=== PATIENT | male | born 1945 | race Hispanic/Latino ===

== ENCOUNTER 2017-12-10 10:28 | Emergency (ER) | payer MEDICARE ==
[2017-12-10 11:06] LABS: Basophils # (Auto) 0.1 K/mm3 (0.0-0.1); Basophils % (Auto) 0.6 % (0.0-1.8); Eosinophils # (Auto) 0.1 K/mm3 (0.0-0.4); Eosinophils % (Auto) 1.1 % (0.0-4.3); Hematocrit 50.9 % (35.5-45.6); Hemoglobin 17.3 gm/dl (11.8-15.2); Lymphocytes # (Auto) 2.5 K/mm3 (1.2-5.4); Lymphocytes % (Auto) 25.9 % (13.4-35.0); Mean Corpuscular HGB Conc 34 % (32-34); Mean Corpuscular Hemoglobin 31 pg (28-32); Mean Corpuscular Volume 92 fl (84-94); Monocytes # (Auto) 0.9 K/mm3 (0.0-0.8); Monocytes % (Auto) 8.9 % (0.0-7.3); Platelet Count 315 K/mm3 (140-440); Red Blood Count 5.55 M/mm3 (3.65-5.03); Red Cell Distribution Width 14.5 % (13.2-15.2)
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
[2017-12-10 11:21] LABS: BUN/Creatinine Ratio 10; Blood Urea Nitrogen 9 mg/dL (9-20); Calcium 9.6 mg/dL (8.4-10.2); Hemolysis Index 19
[2017-12-10 11:30] VITALS: BP 121/82
[2017-12-12] MEDS ORDERED: ATIVAN PO ONE (13:37)
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
== END 2017-12-10 13:22 ==
LOC: ED 10:28
DX: F11.20 Opioid dependence, uncomplicated (principal); F32.9 Major depressive disorder, single episode, unspecified; I10 Essential (primary) hypertension; F17.200 Nicotine dependence, unspecified, uncomplicated; Z90.49 Acquired absence of other specified parts of digestive tract; Z90.89 Acquired absence of other organs
CPT/HCPCS: 36415; 80048; 85025; 99284; G0480; 80320

== ENCOUNTER 2017-12-12 09:46 | Emergency (ER) | payer MEDICARE ==
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
[2017-12-12 11:53] LABS: Basophils # (Auto) 0.2 K/mm3 (0.0-0.1); Basophils % (Auto) 1.1 % (0.0-1.8); Eosinophils # (Auto) 0.1 K/mm3 (0.0-0.4); Eosinophils % (Auto) 0.4 % (0.0-4.3); Hematocrit 57.1 % (35.5-45.6); Hemoglobin 19.2 gm/dl (11.8-15.2); Lymphocytes # (Auto) 3.7 K/mm3 (1.2-5.4); Lymphocytes % (Auto) 23.1 % (13.4-35.0); Mean Corpuscular HGB Conc 34 % (32-34); Mean Corpuscular Hemoglobin 31 pg (28-32); Mean Corpuscular Volume 92 fl (84-94); Monocytes # (Auto) 0.9 K/mm3 (0.0-0.8); Monocytes % (Auto) 5.9 % (0.0-7.3); Red Blood Count 6.18 M/mm3 (3.65-5.03); Red Cell Distribution Width 14.9 % (13.2-15.2)
[2017-12-12 12:12] LABS: Bacteria,Urine 1+ /HPF (Negative); Bilirubin,Urine NEG (Negative); Blood,Urine MOD (Negative); Color,Urine Yellow (Yellow); Hyaline Casts,Urine 9 /LPF; Mucus,Urine 2+ /HPF; Urobilinogen,Urine < 2.0 mg/dL (<2.0)
[2017-12-12 12:14] LABS: Platelet Count 271 K/mm3 (140-440)
[2017-12-12 12:16] LABS: Amphetamine Screen,Urine PRESUMPTIVE NEGATIVE; Benzodiazepines Screen,Urine PRESUMPTIVE NEGATIVE; Cannabinoid Screen,Urine PRESUMPTIVE NEGATIVE; Cocaine Screen,Urine PRESUMPTIVE NEGATIVE; Methadone Screen,Urine PRESUMPTIVE NEGATIVE; Opiate Screen,Urine PRESUMPTIVE NEGATIVE
[2017-12-12 12:21] LABS: BUN/Creatinine Ratio 13; Blood Urea Nitrogen 13 mg/dL (9-20); Calcium 9.2 mg/dL (8.4-10.2); Hemolysis Index 90
[2017-12-12] MEDS ORDERED: ATIVAN PO ONE (13:40)
[2017-12-12 15:09] VITALS: BP 145/82
== END 2017-12-12 15:12 | disposition home or self-care (01) ==
LOC: ED 09:46
DX: F11.23 Opioid dependence with withdrawal (principal); F41.9 Anxiety disorder, unspecified; I10 Essential (primary) hypertension; Z90.49 Acquired absence of other specified parts of digestive tract
CPT/HCPCS: 36415; 80048; 80307; 81001; 85025; 99284; G0480; 80320

== ENCOUNTER 2018-07-23 14:41 | Inpatient (IN) | payer MEDICARE ==
[2018-07-23 16:25] LABS: BUN/Creatinine Ratio 16; Blood Urea Nitrogen 16 mg/dL (9-20); Calcium 8.2 mg/dL (8.4-10.2); Hemolysis Index 251
[2018-07-23] MEDS ORDERED: D50W (25GM) Vial IV ONE (16:40)
[2018-07-23] MEDS ORDERED: D50W (25GM) Syringe IV PRN (16:40)
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
[2018-07-23] MEDS ORDERED: D5/0.45NS 1,000 ML IV SCH (17:00)
[2018-07-23] MEDS ORDERED: ROCEPHIN/NS 1 GM/50 ML 1 GM/50 ML BAG IV ONE (17:19)
[2018-07-23 17:28] LABS: Mean Corpuscular HGB Conc 37 % (32-34); Mean Corpuscular Volume 93 fl (84-94); Red Blood Count 5.75 M/mm3 (3.65-5.03)
[2018-07-23 17:43] LABS: INR 0.87 (0.87-1.13)
[2018-07-23 17:45] LABS: Partial Thromboplastin Time 28.3 Sec. (24.2-36.6)
--- NOTE | 2018-07-23 17:46 | XRay Report ---
PROCEDURE: XR CHEST 1V AP HISTORY: ams hypoglycemia FINDINGS: Frontal view of the chest was acquired. The heart is normal in size. The lungs appear clear . The pleura and mediastinum are within normal limits. IMPRESSION: No active disease in the chest This document is electronically signed by Fidel Yost MD., July 23 2018 05:44:28 PM ET
[2018-07-23 17:52] LABS: Bilirubin,Urine NEG (Negative); Blood,Urine MOD (Negative); Color,Urine Yellow (Yellow); Mucus,Urine FEW /HPF; Protein,Urine <15 mg/dL mg/dL (Negative); Urobilinogen,Urine < 2.0 mg/dL (<2.0)
[2018-07-23 17:55] LABS: Hematocrit 53.6 % (35.5-45.6); Hemoglobin 19.6 gm/dl (11.8-15.2)
[2018-07-23 17:56] LABS: Platelet Count 395 K/mm3 (140-440)
[2018-07-23 17:56] LABS: Amphetamine Screen,Urine PRESUMPTIVE NEGATIVE; Benzodiazepines Screen,Urine PRESUMPTIVE NEGATIVE; Cannabinoid Screen,Urine PRESUMPTIVE NEGATIVE; Cocaine Screen,Urine PRESUMPTIVE NEGATIVE; Methadone Screen,Urine PRESUMPTIVE NEGATIVE; Opiate Screen,Urine PRESUMPTIVE NEGATIVE
[2018-07-23] MEDS ORDERED: NACL 0.9% 1000 ML 1,000 ML IV ONE (18:02)
[2018-07-23] MEDS ORDERED: NACL 0.9% 1000 ML 2,000 ML IV ONE (18:02)
[2018-07-23 18:19] LABS: Band Neutrophils # (Manual) 0.2 K/mm3; Eosinophils % (Manual) 0 % (0.0-4.3); Total Cells Counted 100
[2018-07-23] MEDS ORDERED: HALDOL ONE ×2 (18:21→18:31)
[2018-07-23 18:22] LABS: Ovalocytes Few; Platelet Clumps Few; Platelet Estimate Consistent w Auto; Poikilocytosis Few
[2018-07-23] MEDS ORDERED: HALDOL IM ONE (18:25)
[2018-07-23] MEDS ORDERED: GEODON IM ONE (18:48)
--- NOTE | 2018-07-23 20:17 | Cat Scan Report ---
CT HEAD/BRAIN WO CON CLINICAL INDICATION: Male, 73 years of age. ams COMPARISON: None TECHNIQUE: Contiguous axial images were obtained from the vertex through the skull base.This CT exam was perform ed using one or more of the following dose reduction techniques: automated exposure control, adjustme nt of the mA and/or kV according to patient size, or use of iterative reconstruction technique. FINDINGS: No acute intracranial hemorrhage, midline shift, or pathological extra-axial fluid collection. There is age-related volume loss with compensatory dilatation of the ventricular system and prominence of the overlying sulci. Patchy areas of decreased attenuation within the subcortical and periventricula r white matter compatible with the sequelae of chronic small vessel ischemic disease. Prominence of t he extra-axial CSF spaces which may relate to underlying volume loss. Benign subdural hygromas are no t excluded. 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 Ocular globes ar e grossly unremarkable. Calvarium is grossly intact. Visualized paranasal sinuses and mastoid air cells are grossly clear. IMPRESSION: No grossly acute intracranial abnormality. Mild to moderate volume loss and chronic small vessel isch emic disease. This document is electronically signed by Sully Bowman DO., July 23 2018 08:15:39 PM ET
--- NOTE | 2018-07-23 20:20 | Cat Scan Report ---
CT CERVICAL SPINE WO CON CLINICAL INDICATION: Male, 73 years of age. ams COMPARISON: None. TECHNIQUE: Contiguous axial images were obtained of the cervical spine. This CT exam was performed u sing one or more of the following dose reduction techniques: automated exposure control, adjustment o f the mA and/or kV according to patient size, or use of iterative reconstruction technique. Additiona l sagittal and coronal reformatted images were obtained. Findings: There is straightening of the cervical spine which may reflect patient positioning or under lying muscle spasm. Cervical vertebral body heights are maintained. No acute fracture or traumatic subluxation. The odontoid process, articular pillars, and occipital condyles are intact. Mild to moderate loss of disc height at C4-C5 through C7-T1 levels. Mild canal stenosis and mild-to-m oderate foraminal narrowing at several levels due to broad-based disc bulge, endplate osteophyte and uncovertebral hypertrophy. Rotation of C1 on C2 which may be positional. No pneumothorax of the visua lized lung apices. Prominent calcification carotid bifurcations, greater on the right. IMPRESSION: 1. No acute fracture or traumatic subluxation. There is straightening of the cervical spine which may reflect patient positioning or underlying muscle spasm. 2. Rotation of C1 and C2 which may be positional. Alanto axial Rotatory subluxation could have a nzaia lar appearance by imaging. Clinical correlation is needed for limited range of motion. 3. Mild to moderate degenerative changes. This document is electronically signed by Sully Bowman DO., July 23 2018 08:18:34 PM [place]
--- NOTE | 2018-07-23 20:35 | Cat Scan Report ---
PROCEDURE: CT ABDOMEN PELVIS W CON TECHNIQUE: Computerized axial tomography of the abdomen and pelvis was performed after the IV inject ion of iodinated nonionic contrast. CT DOSE LENGTH PRODUCT: 1869.3 mGycm HISTORY: ams, llq abd pain COMPARISONS: March 03, 2018 . FINDINGS: Liver, spleen, pancreas and adrenal glands are within normal limits. A 3.9 cm simple cyst is noted ar ising from the midpole left kidney. Otherwise Bilateral kidneys demonstrate normal enhancement withou t hydronephrosis. Urinary bladder is normally distended with normal outlines. Aorta is of normal obinna nigel. There is no free fluid or free air. Status post cholecystectomy. Small bowel loops are within no rmal limits. Appendix is not distinctly visualized. There are no inflammatory changes right lower martha drant. Mild prostatomegaly identified. A few small uncomplicated fat-containing midline ventral herni as are noted. Vertebral height is normal. Vacuum phenomenon is noted involving all the lumbar disc le vels consistent with degenerative disc disease. IMPRESSION: No acute intra-abdominal or pelvic pathology. This document is electronically signed by Ge Dupont MD., July 23 2018 08:33:14 PM ET
--- NOTE | 2018-07-23 22:56 | History and Physical Report ---
History of Present Illness Date of examination: 07/23/18 History of present illness: 73-year-old woman with a history of hypertension, migraine was brought to the emergency room for altered mental status. The patient is able to give his history however he does not remember how he got here. He was found to be intoxicated, he was agitated and given Alpa Mustafa to get CT Review of systems Constitutional: no weight loss, chills, fever Ears, eyes, nose, mouth and throat: no nasal congestion, no nasal discharge, no sinus pressure, no vision change, no red eye. Neck: No neck pain or rigidity. Cardiovascular: no palpitations,chest pain Respiratory: no cough, shortness of breath Gastrointestinal: no abdominal pain Genitourinary : no frequency , no hematuria Musculoskeletal: no joint swelling or muscle ache Integumentary: no rash, no pruritis Neurological: no parathesias, no focal weakness Endocrine: no cold or heat intolerance, no polyuria or polydipsia Hematologic/Lymphatic: no easy bruising, no easy bleeding, no gland swelling Allergic/Immunologic: no urticaria, no angioedema. PAST MEDICAL HISTORY: hypertension, migraine PAST SURGICAL HISTORY: Abdominal SOCIAL HISTORY: + alcohol, denies tobacco, drugs FAMILY HISTORY: Hypertension Medications and Allergies Allergies Allergy/AdvReac Type Severity Reaction Status Date / Time No Known Allergies Allergy Verified 03/03/18 03:08 Home Medications Medication Instructions Recorded Confirmed Last Taken Type Carvedilol [Coreg] 25 mg PO BID #60 tablet 07/27/18 Unknown Rx Citalopram Hydrobromide [celeXA] 20 mg PO DAILY #30 tablet 07/27/18 Unknown Rx Folic Acid [Folvite] 1 mg PO QDAY #30 tablet 07/27/18 Unknown Rx Multivitamin [Multiple Vitamins] 1 each PO DAILY #30 tablet 07/27/18 Unknown Rx Pregabalin [Lyrica] 50 mg PO TID 07/27/18 07/27/18 Unknown History Thiamine [Vitamin B-1] 100 mg PO QDAY #30 tablet 07/27/18 Unknown Rx Zolpidem [Ambien] 5 mg PO QHS 07/27/18 07/27/18 Unknown History amLODIPine [Norvasc] 5 mg PO DAILY #30 tablet 07/27/18 Unknown Rx oxyCODONE /ACETAMINOPHEN [Percocet 1 tab PO Q6HR PRN #10 tablet 07/27/18 Unknown Rx 5/325 mg] Active Meds: Active Medications Dextrose (D50w (25gm) Syringe) 50 ml IV PRN PRN PRN Reason: Hypoglycemia Dextrose/Sodium Chloride (D5/0.45ns) 1,000 mls @ 0 mls/hr IV DIRECT LEELA Last Admin: 07/23/18 17:05 Dose: 250 mls/hr Documented by: Exam - Physical Exam Narrative exam: Gen. appearance: Patient lying in bed, no apparent distress HEENT: Normocephalic, atraumatic, pupils equally round and reactive to light, extraocular movement intact, and no sclericterus,. No JVD or thyromegaly or nodu le,neck supple, no carotid bruit ,mucous membranes moist, no exudate or erythema Heart: S1, S2, regular rate and rhythm Lungs: Clear bilaterally, breathing comfortable Abdomen: Positive bowel sounds, non-tender, nondistended, no organomegaly Extremity:no edema cyanosis, clubbing Skin: no rash, dry, warm Neuro: Oriented 3, cranial nerves II-12 intact, speech is fluent, motor and sensory intact - Constitutional Vitals: Temp Pulse Resp BP Pulse Ox 96.4 F L 80 18 139/89 97 07/23/18 19:03 07/23/18 20:15 07/23/18 20:59 07/23/18 20:15 07/23/18 20:15 Results - Labs CBC & Chem 7: 07/24/18 08:02 07/26/18 05:50 Labs: Abnormal lab results 07/23/18 07/23/18 07/23/18 Range/Units 15:52 15:52 15:52 WBC (4.5-11.0) K/mm3 RBC (3.65-5.03) M/mm3 Hgb (11.8-15.2) gm/dl Hct (35.5-45.6) % MCH (28-32) pg MCHC (32-34) % RDW (13.2-15.2) % Seg Neuts % (Manual) (40.0-70.0) % Basophils % (Manual) (0.0-1.8) % Seg Neutrophils # Man (1.8-7.7) K/mm3 Basophils # (Manual) (0.0-0.1) K/mm3 Chloride 97.4 L (98-107) mmol/L Carbon Dioxide 19 L (22-30) mmol/L Glucose 54 L (75-100) mg/dL POC Glucose (70-105) Lactic Acid (0.7-2.0) mmol/L Calcium 8.2 L (8.4-10.2) mg/dL Salicylates < 0.3 L (2.8-20.0) mg/dL Acetaminophen < 5.0 L (10.0-30.0) ug/mL Plasma/Serum Alcohol (0-0.07) % 07/23/18 07/23/18 07/23/18 Range/Units 15:52 16:46 17:11 WBC 11.6 H (4.5-11.0) K/mm3 RBC 5.75 H (3.65-5.03) M/mm3 Hgb 19.6 H (11.8-15.2) gm/dl Hct 53.6 H (35.5-45.6) % MCH 34 H (28-32) pg MCHC 37 H (32-34) % RDW 16.0 H (13.2-15.2) % Seg Neuts % (Manual) 77.0 H (40.0-70.0) % Basophils % (Manual) 2.0 H (0.0-1.8) % Seg Neutrophils # Man 8.9 H (1.8-7.7) K/mm3 Basophils # (Manual) 0.2 H (0.0-0.1) K/mm3 Chloride (98-107) mmol/L Carbon Dioxide (22-30) mmol/L Glucose (75-100) mg/dL POC Glucose (70-105) Lactic Acid 5.80 H* (0.7-2.0) mmol/L Calcium (8.4-10.2) mg/dL Salicylates (2.8-20.0) mg/dL Acetaminophen (10.0-30.0) ug/mL Plasma/Serum Alcohol 0.46 H (0-0.07) % 07/23/18 07/23/18 07/23/18 Range/Units 17:12 18:25 19:03 WBC (4.5-11.0) K/mm3 RBC (3.65-5.03) M/mm3 Hgb (11.8-15.2) gm/dl Hct (35.5-45.6) % MCH (28-32) pg MCHC (32-34) % RDW (13.2-15.2) % Seg Neuts % (Manual) (40.0-70.0) % Basophils % (Manual) (0.0-1.8) % Seg Neutrophils # Man (1.8-7.7) K/mm3 Basophils # (Manual) (0.0-0.1) K/mm3 Chloride (98-107) mmol/L Carbon Dioxide (22-30) mmol/L Glucose (75-100) mg/dL POC Glucose < 40 L 128 H (70-105) Lactic Acid 6.20 H* (0.7-2.0) mmol/L Calcium (8.4-10.2) mg/dL Salicylates (2.8-20.0) mg/dL Acetaminophen (10.0-30.0) ug/mL Plasma/Serum Alcohol (0-0.07) % 07/23/18 07/23/18 07/23/18 Range/Units 20:24 20:42 20:59 WBC (4.5-11.0) K/mm3 RBC (3.65-5.03) M/mm3 Hgb (11.8-15.2) gm/dl Hct (35.5-45.6) % MCH (28-32) pg MCHC (32-34) % RDW (13.2-15.2) % Seg Neuts % (Manual) (40.0-70.0) % Basophils % (Manual) (0.0-1.8) % Seg Neutrophils # Man (1.8-7.7) K/mm3 Basophils # (Manual) (0.0-0.1) K/mm3 Chloride (98-107) mmol/L Carbon Dioxide (22-30) mmol/L Glucose (75-100) mg/dL POC Glucose 157 H (70-105) Lactic Acid 7.80 H* 7.90 H* (0.7-2.0) mmol/L Calcium (8.4-10.2) mg/dL Salicylates (2.8-20.0) mg/dL Acetaminophen (10.0-30.0) ug/mL Plasma/Serum Alcohol (0-0.07) % 07/23/18 Range/Units 21:59 WBC (4.5-11.0) K/mm3 RBC (3.65-5.03) M/mm3 Hgb (11.8-15.2) gm/dl Hct (35.5-45.6) % MCH (28-32) pg MCHC (32-34) % RDW (13.2-15.2) % Seg Neuts % (Manual) (40.0-70.0) % Basophils % (Manual) (0.0-1.8) % Seg Neutrophils # Man (1.8-7.7) K/mm3 Basophils # (Manual) (0.0-0.1) K/mm3 Chloride (98-107) mmol/L Carbon Dioxide (22-30) mmol/L Glucose (75-100) mg/dL POC Glucose (70-105) Lactic Acid 7.30 H* (0.7-2.0) mmol/L Calcium (8.4-10.2) mg/dL Salicylates (2.8-20.0) mg/dL Acetaminophen (10.0-30.0) ug/mL Plasma/Serum Alcohol (0-0.07) % - Imaging and Cardiology CT scan - abdomen: report reviewed CT Scan - head: report reviewed CT scan - pelvis: report reviewed Assessment and Plan Assessment Alcohol intoxication Elevated lactic acid Plan Start IV fluids, CIWA protocol with IV Ativan Give 1 dose of Levaquin, monitor, follow blood cultures No signs of infection DVT prophylaxis
[2018-07-23] MEDS ORDERED: NACL 0.9% 1000 ML 1,000 ML IV SCH (23:45)
[2018-07-23] MEDS ORDERED: ZOFRAN IV PRN (23:46)
[2018-07-23] MEDS ORDERED: SODIUM CHLORIDE FLUSH SYRINGE 10 ML IV PRN (23:46)
[2018-07-24] MEDS ORDERED: XANAX PO PRN (02:15)
[2018-07-24] MEDS: ATIVAN IV PRN ×4 (02:44→18:51)
[2018-07-24] MEDS: TYLENOL PO PRN ×2 (02:45→19:56)
[2018-07-24] MEDS ORDERED: LEVAQUIN 750MG/150ML 750 MG/150 ML BAG IV ONE (02:46)
[2018-07-24 08:37] LABS: Basophils # (Auto) 0.1 K/mm3 (0.0-0.1); Basophils % (Auto) 1.2 % (0.0-1.8); Eosinophils # (Auto) 0.1 K/mm3 (0.0-0.4); Eosinophils % (Auto) 1.3 % (0.0-4.3); Hematocrit 43.5 % (35.5-45.6); Lymphocytes # (Auto) 1.8 K/mm3 (1.2-5.4); Mean Corpuscular HGB Conc 35 % (32-34); Mean Corpuscular Volume 91 fl (84-94); Monocytes # (Auto) 0.7 K/mm3 (0.0-0.8); Monocytes % (Auto) 9.5 % (0.0-7.3); Platelet Count 270 K/mm3 (140-440); Red Blood Count 4.77 M/mm3 (3.65-5.03); Red Cell Distribution Width 15.9 % (13.2-15.2)
[2018-07-24 09:08] LABS: BUN/Creatinine Ratio 19; Blood Urea Nitrogen 13 mg/dL (9-20); Calcium 7.3 mg/dL (8.4-10.2); Hemolysis Index 104
[2018-07-24] MEDS ORDERED: LOVENOX SUB-Q SCH (10:00)
[2018-07-24] MEDS: SODIUM CHLORIDE FLUSH SYRINGE 10 ML IV SCH ×2 (10:42→22:22)
[2018-07-24] MEDS: LOVENOX SUB-Q SCH (10:42)
[2018-07-24] MEDS ORDERED: K-DUR PO ONE (12:00)
[2018-07-24] MEDS ORDERED: NACL 0.9% 1000 ML 1,000 ML IV ONE (12:00)
[2018-07-24] MEDS: PROTONIX PO SCH (13:13)
[2018-07-24] MEDS: NS/KCL 20MEQ 20 MEQ/1,000 ML BAG IV SCH (13:13)
--- NOTE | 2018-07-24 15:57 | Progress Note ---
Assessment and Plan Assessment and plan: Acute alcohol intoxication -Stable -Continues CIWA protocol Lactic acidosis -Likely secondary to the alcohol intoxication -Level improving on IV fluid, will monitor Acute toxic/metabolic encephalopathy -Probably due to the alcohol intoxication versus hypoglycemia -Improved -Head CT scan negative for acute findings Mild hypokalemia -on repletion, we'll monitor level Hypoglycemia -On hypoglycemic protocol Disposition: For discharge when medically stable History Interval history: The patient has no new complaints. He is more responsive today. Hospitalist Physical - Constitutional Vitals: Temp Pulse Resp BP Pulse Ox 98.2 F 80 18 116/55 93 07/24/18 08:10 07/24/18 08:10 07/24/18 08:10 07/24/18 08:10 07/24/18 08:10 General appearance: Present: no acute distress - EENT Eyes: Present: PERRL, EOM intact ENT: hearing intact, clear oral mucosa - Neck Neck: Present: supple - Respiratory Respiratory effort: normal Respiratory: bilateral: CTA - Cardiovascular Rhythm: regular Heart Sounds: Present: S1 & S2 - Extremities Extremities: No edema - Abdominal General gastrointestinal: soft, tender (epigastric), normal bowel sounds - Integumentary Integumentary: Present: clear, warm, dry - Neurologic Neurologic: CNII-XII intact Results - Labs CBC & Chem 7: 07/24/18 08:02 07/24/18 08:02 Labs: Laboratory Last Values WBC 7.1 K/mm3 (4.5-11.0) 07/24/18 08:02 RBC 4.77 M/mm3 (3.65-5.03) 07/24/18 08:02 Hgb 15.0 gm/dl (11.8-15.2) D 07/24/18 08:02 Hct 43.5 % (35.5-45.6) D 07/24/18 08:02 MCV 91 fl (84-94) 07/24/18 08:02 MCH 32 pg (28-32) 07/24/18 08:02 MCHC 35 % (32-34) H 07/24/18 08:02 RDW 15.9 % (13.2-15.2) H 07/24/18 08:02 Plt Count 270 K/mm3 (140-440) 07/24/18 08:02 Lymph % (Auto) 25.0 % (13.4-35.0) 07/24/18 08:02 [place] % (Auto) 9.5 % (0.0-7.3) H 07/24/18 08:02 Eos % (Auto) 1.3 % (0.0-4.3) 07/24/18 08:02 Baso % (Auto) 1.2 % (0.0-1.8) 07/24/18 08:02 Lymph # 1.8 K/mm3 (1.2-5.4) 07/24/18 08:02 Jerome # 0.7 K/mm3 (0.0-0.8) 07/24/18 08:02 Eos # 0.1 K/mm3 (0.0-0.4) 07/24/18 08:02 Baso # 0.1 K/mm3 (0.0-0.1) 07/24/18 08:02 Add Manual Diff Complete 07/23/18 16:46 Total Counted 100 07/23/18 16:46 Seg Neutrophils % 63.0 % (40.0-70.0) 07/24/18 08:02 Seg Neuts % (Manual) 77.0 % (40.0-70.0) H 07/23/18 16:46 Band Neutrophils % 2.0 % 07/23/18 16:46 Lymphocytes % (Manual) 16.0 % (13.4-35.0) 07/23/18 16:46 Reactive Lymphs % (Man) 0 % 07/23/18 16:46 Monocytes % (Manual) 3.0 % (0.0-7.3) 07/23/18 16:46 Eosinophils % (Manual) 0 % (0.0-4.3) 07/23/18 16:46 Basophils % (Manual) 2.0 % (0.0-1.8) H 07/23/18 16:46 Metamyelocytes % 0 % 07/23/18 16:46 Myelocytes % 0 % 07/23/18 16:46 Promyelocytes % 0 % 07/23/18 16:46 Blast Cells % 0 % 07/23/18 16:46 Nucleated RBC % Not Reportable 07/23/18 16:46 Seg Neutrophils # 4.5 K/mm3 (1.8-7.7) 07/24/18 08:02 Seg Neutrophils # Man 8.9 K/mm3 (1.8-7.7) H 07/23/18 16:46 Band Neutrophils # 0.2 K/mm3 07/23/18 16:46 Lymphocytes # (Manual) 1.9 K/mm3 (1.2-5.4) 07/23/18 16:46 Abs React Lymphs (Man) 0.0 K/mm3 07/23/18 16:46 Monocytes # (Manual) 0.3 K/mm3 (0.0-0.8) 07/23/18 16:46 Eosinophils # (Manual) 0.0 K/mm3 (0.0-0.4) 07/23/18 16:46 Basophils # (Manual) 0.2 K/mm3 (0.0-0.1) H 07/23/18 16:46 Metamyelocytes # 0.0 K/mm3 07/23/18 16:46 Myelocytes # 0.0 K/mm3 07/23/18 16:46 Promyelocytes # 0.0 K/mm3 07/23/18 16:46 Blast Cells # 0.0 K/mm3 07/23/18 16:46 WBC Morphology Not Reportable 07/23/18 16:46 Hypersegmented Neuts Not Reportable 07/23/18 16:46 Hyposegmented Neuts Not Reportable 07/23/18 16:46 Hypogranular Neuts Not Reportable 07/23/18 16:46 Smudge Cells Not Reportable 07/23/18 16:46 Toxic Granulation Not Reportable 07/23/18 16:46 Toxic Vacuolation Not Reportable 07/23/18 16:46 Dohle Bodies Not Reportable 07/23/18 16:46 Pelger-Huet Anomaly Not Reportable 07/23/18 16:46 Flavia Rods Not Reportable 07/23/18 16:46 Platelet Estimate Consistent w auto 07/23/18 16:46 Clumped Platelets Few 07/23/18 16:46 Plt Clumps, EDTA Not Reportable 07/23/18 16:46 Large Platelets Not Reportable 07/23/18 16:46 Giant Platelets Not Reportable 07/23/18 16:46 Platelet Satelliting Not Reportable 07/23/18 16:46 Plt Morphology Comment Not Reportable 07/23/18 16:46 RBC Morphology Not Reportable 07/23/18 16:46 Dimorphic RBCs Not Reportable 07/23/18 16:46 Polychromasia Not Reportable 07/23/18 16:46 Hypochromasia Not Reportable 07/23/18 16:46 Poikilocytosis Few 07/23/18 16:46 Anisocytosis Not Reportable 07/23/18 16:46 Microcytosis Not Reportable 07/23/18 16:46 Macrocytosis Not Reportable 07/23/18 16:46 Spherocytes Not Reportable 07/23/18 16:46 Pappenheimer Bodies Not Reportable 07/23/18 16:46 Sickle Cells Not Reportable 07/23/18 16:46 Target Cells Not Reportable 07/23/18 16:46 Tear Drop Cells Not Reportable 07/23/18 16:46 Ovalocytes Few 07/23/18 16:46 Helmet Cells Not Reportable 07/23/18 16:46 [place] Bodies Not Reportable 07/23/18 16:46 [place] Rings Not Reportable 07/23/18 16:46 [place] Cells Not Reportable 07/23/18 16:46 Bite Cells Not Reportable 07/23/18 16:46 Crenated Cell Not Reportable 07/23/18 16:46 Elliptocytes Not Reportable 07/23/18 16:46 Acanthocytes (Spur) Not Reportable 07/23/18 16:46 Rouleaux Not Reportable 07/23/18 16:46 Hemoglobin C Crystals Not Reportable 07/23/18 16:46 Schistocytes Not Reportable 07/23/18 16:46 Malaria parasites Not Reportable 07/23/18 16:46 Min Bodies Not Reportable 07/23/18 16:46 Hem Pathologist Commnt No 07/23/18 16:46 PT 12.4 Sec. (12.2-14.9) 07/23/18 17:11 INR 0.87 (0.87-1.13) 07/23/18 17:11 APTT 28.3 Sec. (24.2-36.6) 07/23/18 17:11 Sodium 140 mmol/L (137-145) 07/24/18 08:02 Potassium 3.5 mmol/L (3.6-5.0) L 07/24/18 08:02 Chloride 99.5 mmol/L (98-107) 07/24/18 08:02 Carbon Dioxide 20 mmol/L (22-30) L 07/24/18 08:02 Anion Gap 24 mmol/L 07/24/18 08:02 BUN 13 mg/dL (9-20) 07/24/18 08:02 Creatinine 0.7 mg/dL (0.8-1.5) L 07/24/18 08:02 Estimated GFR > 60 ml/min 07/24/18 08:02 BUN/Creatinine Ratio 19 % 07/24/18 08:02 Glucose 53 mg/dL (75-100) L 07/24/18 08:02 POC Glucose 137 (70-105) H 07/24/18 00:32 Lactic Acid 4.90 mmol/L (0.7-2.0) H* 07/24/18 08:02 Calcium 7.3 mg/dL (8.4-10.2) L 07/24/18 08:02 Magnesium 2.30 mg/dL (1.7-2.3) 07/23/18 17:11 Total Creatine Kinase 81 units/L (55-170) 07/23/18 17:11 TSH 0.731 mlU/mL (0.270-4.200) 07/23/18 18:25 Urine Color Yellow (Yellow) 07/23/18 17:15 Urine Turbidity Slightly-cloudy (Clear) 07/23/18 17:15 Urine pH 5.0 (5.0-7.0) 07/23/18 17:15 Ur Specific [place] 1.011 (1.003-1.030) 07/23/18 17:15 Urine Protein <15 mg/dl mg/dL (Negative) 07/23/18 17:15 Urine Glucose (UA) Neg mg/dL (Negative) 07/23/18 17:15 Urine Ketones Tr mg/dL (Negative) 07/23/18 17:15 Urine Blood Mod (Negative) 07/23/18 17:15 Urine Nitrite Neg (Negative) 07/23/18 17:15 Urine Bilirubin Neg (Negative) 07/23/18 17:15 Urine Urobilinogen < 2.0 mg/dL (<2.0) 07/23/18 17:15 Ur Leukocyte Esterase Neg (Negative) 07/23/18 17:15 Urine WBC (Auto) 2.0 /HPF (0.0-6.0) 07/23/18 17:15 Urine RBC (Auto) 1.0 /HPF (0.0-6.0) 07/23/18 17:15 U Epithel Cells (Auto) < 1.0 /HPF (0-13.0) 07/23/18 17:15 Urine Mucus Few /HPF 07/23/18 17:15 Salicylates < 0.3 mg/dL (2.8-20.0) L 07/23/18 15:52 Urine Opiates Screen Presumptive negative 07/23/18 17:15 Urine Methadone Screen Presumptive negative 07/23/18 17:15 Acetaminophen < 5.0 ug/mL (10.0-30.0) L 07/23/18 15:52 Ur Barbiturates Screen Presumptive negative 07/23/18 17:15 Ur Phencyclidine Scrn Presumptive negative 07/23/18 17:15 Ur Amphetamines Screen Presumptive negative 07/23/18 17:15 U Benzodiazepines Scrn Presumptive negative 07/23/18 17:15 Urine Cocaine Screen Presumptive negative 07/23/18 17:15 U Marijuana (THC) Screen Presumptive negative 07/23/18 17:15 Drugs of Abuse Note Disclamer 07/23/18 17:15 Plasma/Serum Alcohol 0.46 % (0-0.07) H 07/23/18 15:52 Active Medications - Current Medications Current Medications: Generic Name Dose Route Start Last Admin Trade Name Freq PRN Reason Stop Dose Admin Acetaminophen 650 mg 07/23/18 23:46 07/24/18 02:45 Tylenol PO 650 mg Q4H PRN Administration Pain MILD(1-3)/Fever >100.5/SAHU Dextrose 50 ml 07/23/18 16:40 D50w (25gm) Syringe IV PRN PRN Hypoglycemia Enoxaparin Sodium 40 mg 07/24/18 10:00 07/24/18 10:42 Lovenox SUB-Q 40 mg QDAY@1000 LEELA Administration Potassium Chloride/Sodium Chloride 20 meq in 1,000 mls @ 100 mls/hr 07/24/18 13:00 07/24/18 13:13 Ns/Kcl 20meq IV 100 mls/hr DIRECT LEELA Administration Lorazepam 2 mg 07/23/18 23:47 07/24/18 11:31 Ativan IV 2 mg Q1HR PRN Administration CIWA-Ar 8-15 Lorazepam 4 mg 07/23/18 23:47 07/24/18 02:44 Ativan IV 4 mg Q1HR PRN Administration CIWA-Ar 16-25 Ondansetron HCl 4 mg 07/23/18 23:46 Zofran IV Q8H PRN Nausea And Vomiting Pantoprazole Sodium 40 mg 07/24/18 13:00 07/24/18 13:13 Protonix PO 40 mg QDAY LEELA Administration Sodium Chloride 10 ml 07/24/18 10:00 07/24/18 10:42 Sodium Chloride Flush Syringe 10 Ml IV 10 ml BID LEELA Administration Sodium Chloride 10 ml 07/23/18 23:46 Sodium Chloride Flush Syringe 10 Ml IV PRN PRN LINE FLUSH
[2018-07-24] MEDS: PERCOCET 5/325 PO PRN (20:54)
[2018-07-24] MEDS ORDERED: ELAVIL PO SCH (22:00)
[2018-07-25] MEDS: NS/KCL 20MEQ 20 MEQ/1,000 ML BAG IV SCH ×2 (03:12→13:43)
[2018-07-25 06:58] LABS: BUN/Creatinine Ratio 11; Blood Urea Nitrogen 9 mg/dL (9-20); Calcium 7.3 mg/dL (8.4-10.2); Hemolysis Index 6
[2018-07-25] MEDS: PERCOCET 5/325 PO PRN ×2 (08:02→16:35)
[2018-07-25] MEDS: PROTONIX PO SCH (09:32)
[2018-07-25] MEDS: SODIUM CHLORIDE FLUSH SYRINGE 10 ML IV SCH ×2 (09:32→21:55)
[2018-07-25] MEDS: LOVENOX SUB-Q SCH (09:32)
[2018-07-25] MEDS ORDERED: K-DUR PO ONE (12:29)
[2018-07-25] MEDS ORDERED: MAGNESIUM SULFATE 2GM/50ML 2 GM/50 ML BAG IV ONE (12:30)
[2018-07-25] MEDS ORDERED: APRESOLINE IV PRN (12:37)
--- NOTE | 2018-07-25 12:41 | Progress Note ---
Assessment and Plan Assessment and plan: Acute alcohol intoxication -Stable -Continue CIWA protocol due to high risk for alcohol withdrawal Lactic acidosis -Likely secondary to the alcohol intoxication -Level improving on IV fluid, will monitor Acute toxic/metabolic encephalopathy -Probably due to the alcohol intoxication versus hypoglycemia -Resolved -Head CT scan negative for acute findings Hypokalemia/Hypomagnesemia -on repletion, we'll monitor levels Hypoglycemia -Stable -On hypoglycemic protocol Hypertension -Uncontrolled, amlodipine started Migraine headaches -On when necessary narcotics Disposition: For discharge when medically stable History Interval history: Patient complained of migraine headaches Hospitalist Physical - Constitutional Vitals: Temp Pulse Resp BP Pulse Ox 98.1 F 92 H 18 173/94 93 07/25/18 08:27 07/25/18 08:25 07/25/18 08:25 07/25/18 08:25 07/25/18 08:25 General appearance: Present: no acute distress - EENT Eyes: Present: PERRL, EOM intact ENT: hearing intact, clear oral mucosa - Neck Neck: Present: supple - Respiratory Respiratory effort: normal Respiratory: bilateral: CTA - Cardiovascular Rhythm: regular Heart Sounds: Present: S1 & S2 - Extremities Extremities: No edema - Abdominal General gastrointestinal: soft, non-tender, normal bowel sounds - Integumentary Integumentary: Present: clear, warm, dry - Neurologic Neurologic: CNII-XII intact Results - Labs CBC & Chem 7: 07/24/18 08:02 07/25/18 06:14 Labs: Laboratory Last Values WBC 7.1 K/mm3 (4.5-11.0) 07/24/18 08:02 RBC 4.77 M/mm3 (3.65-5.03) 07/24/18 08:02 Hgb 15.0 gm/dl (11.8-15.2) D 07/24/18 08:02 Hct 43.5 % (35.5-45.6) D 07/24/18 08:02 MCV 91 fl (84-94) 07/24/18 08:02 MCH 32 pg (28-32) 07/24/18 08:02 MCHC 35 % (32-34) H 07/24/18 08:02 RDW 15.9 % (13.2-15.2) H 07/24/18 08:02 Plt Count 270 K/mm3 (140-440) 07/24/18 08:02 Lymph % (Auto) 25.0 % (13.4-35.0) 07/24/18 08:02 [place] % (Auto) 9.5 % (0.0-7.3) H 07/24/18 08:02 Eos % (Auto) 1.3 % (0.0-4.3) 07/24/18 08:02 Baso % (Auto) 1.2 % (0.0-1.8) 07/24/18 08:02 Lymph # 1.8 K/mm3 (1.2-5.4) 07/24/18 08:02 [place] # 0.7 K/mm3 (0.0-0.8) 07/24/18 08:02 Eos # 0.1 K/mm3 (0.0-0.4) 07/24/18 08:02 Baso # 0.1 K/mm3 (0.0-0.1) 07/24/18 08:02 Add Manual Diff Complete 07/23/18 16:46 Total Counted 100 07/23/18 16:46 Seg Neutrophils % 63.0 % (40.0-70.0) 07/24/18 08:02 Seg Neuts % (Manual) 77.0 % (40.0-70.0) H 07/23/18 16:46 Band Neutrophils % 2.0 % 07/23/18 16:46 Lymphocytes % (Manual) 16.0 % (13.4-35.0) 07/23/18 16:46 Reactive Lymphs % (Man) 0 % 07/23/18 16:46 Monocytes % (Manual) 3.0 % (0.0-7.3) 07/23/18 16:46 Eosinophils % (Manual) 0 % (0.0-4.3) 07/23/18 16:46 Basophils % (Manual) 2.0 % (0.0-1.8) H 07/23/18 16:46 Metamyelocytes % 0 % 07/23/18 16:46 Myelocytes % 0 % 07/23/18 16:46 Promyelocytes % 0 % 07/23/18 16:46 Blast Cells % 0 % 07/23/18 16:46 Nucleated RBC % Not Reportable 07/23/18 16:46 Seg Neutrophils # 4.5 K/mm3 (1.8-7.7) 07/24/18 08:02 Seg Neutrophils # Man 8.9 K/mm3 (1.8-7.7) H 07/23/18 16:46 Band Neutrophils # 0.2 K/mm3 07/23/18 16:46 Lymphocytes # (Manual) 1.9 K/mm3 (1.2-5.4) 07/23/18 16:46 Abs React Lymphs (Man) 0.0 K/mm3 07/23/18 16:46 Monocytes # (Manual) 0.3 K/mm3 (0.0-0.8) 07/23/18 16:46 Eosinophils # (Manual) 0.0 K/mm3 (0.0-0.4) 07/23/18 16:46 Basophils # (Manual) 0.2 K/mm3 (0.0-0.1) H 07/23/18 16:46 Metamyelocytes # 0.0 K/mm3 07/23/18 16:46 Myelocytes # 0.0 K/mm3 07/23/18 16:46 Promyelocytes # 0.0 K/mm3 07/23/18 16:46 Blast Cells # 0.0 K/mm3 07/23/18 16:46 WBC Morphology Not Reportable 07/23/18 16:46 Hypersegmented Neuts Not Reportable 07/23/18 16:46 Hyposegmented Neuts Not Reportable 07/23/18 16:46 Hypogranular Neuts Not Reportable 07/23/18 16:46 Smudge Cells Not Reportable 07/23/18 16:46 Toxic Granulation Not Reportable 07/23/18 16:46 Toxic Vacuolation Not Reportable 07/23/18 16:46 Dohle Bodies Not Reportable 07/23/18 16:46 Pelger-Huet Anomaly Not Reportable 07/23/18 16:46 Flavia Rods Not Reportable 07/23/18 16:46 Platelet Estimate Consistent w auto 07/23/18 16:46 Clumped Platelets Few 07/23/18 16:46 Plt Clumps, EDTA Not Reportable 07/23/18 16:46 Large Platelets Not Reportable 07/23/18 16:46 Giant Platelets Not Reportable 07/23/18 16:46 Platelet Satelliting Not Reportable 07/23/18 16:46 Plt Morphology Comment Not Reportable 07/23/18 16:46 RBC Morphology Not Reportable 07/23/18 16:46 Dimorphic RBCs Not Reportable 07/23/18 16:46 Polychromasia Not Reportable 07/23/18 16:46 Hypochromasia Not Reportable 07/23/18 16:46 Poikilocytosis Few 07/23/18 16:46 Anisocytosis Not Reportable 07/23/18 16:46 Microcytosis Not Reportable 07/23/18 16:46 Macrocytosis Not Reportable 07/23/18 16:46 Spherocytes Not Reportable 07/23/18 16:46 Pappenheimer Bodies Not Reportable 07/23/18 16:46 Sickle Cells Not Reportable 07/23/18 16:46 Target Cells Not Reportable 07/23/18 16:46 Tear Drop Cells Not Reportable 07/23/18 16:46 Ovalocytes Few 07/23/18 16:46 Helmet Cells Not Reportable 07/23/18 16:46 [place] Bodies Not Reportable 07/23/18 16:46 [place] Rings Not Reportable 07/23/18 16:46 [place] Cells Not Reportable 07/23/18 16:46 Bite Cells Not Reportable 07/23/18 16:46 Crenated Cell Not Reportable 07/23/18 16:46 Elliptocytes Not Reportable 07/23/18 16:46 Acanthocytes (Spur) Not Reportable 07/23/18 16:46 Rouleaux Not Reportable 07/23/18 16:46 Hemoglobin C Crystals Not Reportable 07/23/18 16:46 Schistocytes Not Reportable 07/23/18 16:46 Malaria parasites Not Reportable 07/23/18 16:46 Min Bodies Not Reportable 07/23/18 16:46 Hem Pathologist Commnt No 07/23/18 16:46 PT 12.4 Sec. (12.2-14.9) 07/23/18 17:11 INR 0.87 (0.87-1.13) 07/23/18 17:11 APTT 28.3 Sec. (24.2-36.6) 07/23/18 17:11 Sodium 139 mmol/L (137-145) 07/25/18 06:14 Potassium 3.4 mmol/L (3.6-5.0) L 07/25/18 06:14 Chloride 102.4 mmol/L (98-107) 07/25/18 06:14 Carbon Dioxide 24 mmol/L (22-30) 07/25/18 06:14 Anion Gap 16 mmol/L 07/25/18 06:14 BUN 9 mg/dL (9-20) 07/25/18 06:14 Creatinine 0.8 mg/dL (0.8-1.5) 07/25/18 06:14 Estimated GFR > 60 ml/min 07/25/18 06:14 BUN/Creatinine Ratio 11 % 07/25/18 06:14 Glucose 89 mg/dL (75-100) 07/25/18 06:14 POC Glucose 102 (70-105) 07/25/18 12:14 Lactic Acid 4.90 mmol/L (0.7-2.0) H* 07/24/18 08:02 Calcium 7.3 mg/dL (8.4-10.2) L 07/25/18 06:14 Magnesium 1.50 mg/dL (1.7-2.3) L 07/25/18 06:14 Total Creatine Kinase 81 units/L (55-170) 07/23/18 17:11 TSH 0.731 mlU/mL (0.270-4.200) 07/23/18 18:25 Urine Color Yellow (Yellow) 07/23/18 17:15 Urine Turbidity Slightly-cloudy (Clear) 07/23/18 17:15 Urine pH 5.0 (5.0-7.0) 07/23/18 17:15 Ur Specific [place] 1.011 (1.003-1.030) 07/23/18 17:15 Urine Protein <15 mg/dl mg/dL (Negative) 07/23/18 17:15 Urine Glucose (UA) Neg mg/dL (Negative) 07/23/18 17:15 Urine Ketones Tr mg/dL (Negative) 07/23/18 17:15 Urine Blood Mod (Negative) 07/23/18 17:15 Urine Nitrite Neg (Negative) 07/23/18 17:15 Urine Bilirubin Neg (Negative) 07/23/18 17:15 Urine Urobilinogen < 2.0 mg/dL (<2.0) 07/23/18 17:15 Ur Leukocyte Esterase Neg (Negative) 07/23/18 17:15 Urine WBC (Auto) 2.0 /HPF (0.0-6.0) 07/23/18 17:15 Urine RBC (Auto) 1.0 /HPF (0.0-6.0) 07/23/18 17:15 U Epithel Cells (Auto) < 1.0 /HPF (0-13.0) 07/23/18 17:15 Urine Mucus Few /HPF 07/23/18 17:15 Salicylates < 0.3 mg/dL (2.8-20.0) L 07/23/18 15:52 Urine Opiates Screen Presumptive negative 07/23/18 17:15 Urine Methadone Screen Presumptive negative 07/23/18 17:15 Acetaminophen < 5.0 ug/mL (10.0-30.0) L 07/23/18 15:52 Ur Barbiturates Screen Presumptive negative 07/23/18 17:15 Ur Phencyclidine Scrn Presumptive negative 07/23/18 17:15 Ur Amphetamines Screen Presumptive negative 07/23/18 17:15 U Benzodiazepines Scrn Presumptive negative 07/23/18 17:15 Urine Cocaine Screen Presumptive negative 07/23/18 17:15 U Marijuana (THC) Screen Presumptive negative 07/23/18 17:15 Drugs of Abuse Note Disclamer 07/23/18 17:15 Plasma/Serum Alcohol 0.46 % (0-0.07) H 07/23/18 15:52 Active Medications - Current Medications Current Medications: Generic Name Dose Route Start Last Admin Trade Name Freq PRN Reason Stop Dose Admin Acetaminophen 650 mg 07/23/18 23:46 07/24/18 19:56 Tylenol PO 650 mg Q4H PRN Administration Pain MILD(1-3)/Fever >100.5/SAHU Dextrose 50 ml 07/23/18 16:40 D50w (25gm) Syringe IV PRN PRN Hypoglycemia Enoxaparin Sodium 40 mg 07/24/18 10:00 07/25/18 09:32 Lovenox SUB-Q 40 mg QDAY@1000 LEELA Administration Potassium Chloride/Sodium Chloride 20 meq in 1,000 mls @ 100 mls/hr 07/24/18 13:00 07/25/18 03:12 Ns/Kcl 20meq IV 100 mls/hr DIRECT LEELA Administration Magnesium Sulfate 2 gm in 50 mls @ 25 mls/hr 07/25/18 12:30 Magnesium Sulfate 2gm/50ml IV 07/25/18 14:29 ONCE ONE Lorazepam 2 mg 07/23/18 23:47 07/24/18 18:51 Ativan IV 2 mg Q1HR PRN Administration CIWA-Ar 8-15 Lorazepam 4 mg 07/23/18 23:47 07/24/18 02:44 Ativan IV 4 mg Q1HR PRN Administration CIWA-Ar 16-25 Ondansetron HCl 4 mg 07/23/18 23:46 Zofran IV Q8H PRN Nausea And Vomiting Oxycodone/Acetaminophen 1 tab 07/24/18 20:37 07/25/18 08:02 Percocet 5/325 PO 1 tab Q4H PRN Administration Pain, Moderate (4-6) Pantoprazole Sodium 40 mg 07/24/18 13:00 07/25/18 09:32 Protonix PO 40 mg QDAY LEELA Administration Sodium Chloride 10 ml 07/24/18 10:00 07/25/18 09:32 Sodium Chloride Flush Syringe 10 Ml IV 10 ml BID LEELA Administration Sodium Chloride 10 ml 07/23/18 23:46 Sodium Chloride Flush Syringe 10 Ml IV PRN PRN LINE FLUSH
[2018-07-25] MEDS: NORVASC PO SCH (13:16)
[2018-07-25] MEDS: ATIVAN IV PRN (13:48)
[2018-07-26] MEDS: PERCOCET 5/325 PO PRN
[2018-07-26] MEDS: NS/KCL 20MEQ 20 MEQ/1,000 ML BAG IV SCH (00:44)
[2018-07-26] MEDS: ATIVAN IV PRN ×5 (03:43→11:44)
[2018-07-26 06:46] LABS: Alanine Aminotransferase 11 units/L (7-56); Albumin 3.5 g/dL (3.9-5); BUN/Creatinine Ratio 5; Blood Urea Nitrogen 3 mg/dL (9-20); Calcium 8.1 mg/dL (8.4-10.2); Hemolysis Index 5
[2018-07-26] MEDS: NORVASC PO SCH (09:33)
[2018-07-26] MEDS: PROTONIX PO SCH (09:33)
[2018-07-26] MEDS: SODIUM CHLORIDE FLUSH SYRINGE 10 ML IV SCH ×2 (09:33→21:50)
[2018-07-26] MEDS: LOVENOX SUB-Q SCH (09:33)
--- NOTE | 2018-07-26 14:18 | Progress Note ---
Assessment and Plan Assessment and plan: Acute alcohol intoxication -Stable -We will discontinue CIWA protocol -Patient started on scheduled oral diazepam Lactic acidosis -Likely secondary to the alcohol intoxication -Resolved Acute toxic/metabolic encephalopathy -Probably due to the alcohol intoxication versus hypoglycemia -Resolved -Head CT scan negative for acute findings Hypokalemia/Hypomagnesemia -Resolved status post repletion Hypoglycemia -Stable Hypertension -Fairly controlled on amlodipine, Coreg added History of depression -Patient requested for evaluation by the mental health team, consult placed Migraine headaches -On when necessary narcotics Disposition: For possible discharge tomorrow if clinically stable and cleared by the Mental health team History Interval history: Patient stated that he has history of depression and would like to speak to the mental health team Hospitalist Physical - Constitutional Vitals: Temp Pulse Resp BP Pulse Ox 98.1 F 92 H 18 153/102 86 07/26/18 12:50 07/26/18 12:50 07/26/18 12:50 07/26/18 12:50 07/26/18 12:50 General appearance: Present: no acute distress - EENT Eyes: Present: PERRL, EOM intact ENT: hearing intact, clear oral mucosa - Neck Neck: Present: supple - Respiratory Respiratory effort: normal Respiratory: bilateral: CTA - Cardiovascular Rhythm: regular Heart Sounds: Present: S1 & S2 - Extremities Extremities: No edema - Abdominal General gastrointestinal: soft, non-tender, normal bowel sounds - Integumentary Integumentary: Present: clear, warm, dry - Neurologic Neurologic: CNII-XII intact Results - Labs CBC & Chem 7: 07/24/18 08:02 07/26/18 05:50 Labs: Laboratory Last Values WBC 7.1 K/mm3 (4.5-11.0) 07/24/18 08:02 RBC 4.77 M/mm3 (3.65-5.03) 07/24/18 08:02 Hgb 15.0 gm/dl (11.8-15.2) D 07/24/18 08:02 Hct 43.5 % (35.5-45.6) D 07/24/18 08:02 MCV 91 fl (84-94) 07/24/18 08:02 MCH 32 pg (28-32) 07/24/18 08:02 MCHC 35 % (32-34) H 07/24/18 08:02 RDW 15.9 % (13.2-15.2) H 07/24/18 08:02 Plt Count 270 K/mm3 (140-440) 07/24/18 08:02 Lymph % (Auto) 25.0 % (13.4-35.0) 07/24/18 08:02 [place] % (Auto) 9.5 % (0.0-7.3) H 07/24/18 08:02 Eos % (Auto) 1.3 % (0.0-4.3) 07/24/18 08:02 Baso % (Auto) 1.2 % (0.0-1.8) 07/24/18 08:02 Lymph # 1.8 K/mm3 (1.2-5.4) 07/24/18 08:02 [place] # 0.7 K/mm3 (0.0-0.8) 07/24/18 08:02 Eos # 0.1 K/mm3 (0.0-0.4) 07/24/18 08:02 Baso # 0.1 K/mm3 (0.0-0.1) 07/24/18 08:02 Add Manual Diff Complete 07/23/18 16:46 Total Counted 100 07/23/18 16:46 Seg Neutrophils % 63.0 % (40.0-70.0) 07/24/18 08:02 Seg Neuts % (Manual) 77.0 % (40.0-70.0) H 07/23/18 16:46 Band Neutrophils % 2.0 % 07/23/18 16:46 Lymphocytes % (Manual) 16.0 % (13.4-35.0) 07/23/18 16:46 Reactive Lymphs % (Man) 0 % 07/23/18 16:46 Monocytes % (Manual) 3.0 % (0.0-7.3) 07/23/18 16:46 Eosinophils % (Manual) 0 % (0.0-4.3) 07/23/18 16:46 Basophils % (Manual) 2.0 % (0.0-1.8) H 07/23/18 16:46 Metamyelocytes % 0 % 07/23/18 16:46 Myelocytes % 0 % 07/23/18 16:46 Promyelocytes % 0 % 07/23/18 16:46 Blast Cells % 0 % 07/23/18 16:46 Nucleated RBC % Not Reportable 07/23/18 16:46 Seg Neutrophils # 4.5 K/mm3 (1.8-7.7) 07/24/18 08:02 Seg Neutrophils # Man 8.9 K/mm3 (1.8-7.7) H 07/23/18 16:46 Band Neutrophils # 0.2 K/mm3 07/23/18 16:46 Lymphocytes # (Manual) 1.9 K/mm3 (1.2-5.4) 07/23/18 16:46 Abs React Lymphs (Man) 0.0 K/mm3 07/23/18 16:46 Monocytes # (Manual) 0.3 K/mm3 (0.0-0.8) 07/23/18 16:46 Eosinophils # (Manual) 0.0 K/mm3 (0.0-0.4) 07/23/18 16:46 Basophils # (Manual) 0.2 K/mm3 (0.0-0.1) H 07/23/18 16:46 Metamyelocytes # 0.0 K/mm3 07/23/18 16:46 Myelocytes # 0.0 K/mm3 07/23/18 16:46 Promyelocytes # 0.0 K/mm3 07/23/18 16:46 Blast Cells # 0.0 K/mm3 07/23/18 16:46 WBC Morphology Not Reportable 07/23/18 16:46 Hypersegmented Neuts Not Reportable 07/23/18 16:46 Hyposegmented Neuts Not Reportable 07/23/18 16:46 Hypogranular Neuts Not Reportable 07/23/18 16:46 Smudge Cells Not Reportable 07/23/18 16:46 Toxic Granulation Not Reportable 07/23/18 16:46 Toxic Vacuolation Not Reportable 07/23/18 16:46 Dohle Bodies Not Reportable 07/23/18 16:46 Pel[place] Anomaly Not Reportable 07/23/18 16:46 Flavia Rods Not Reportable 07/23/18 16:46 Platelet Estimate Consistent w auto 07/23/18 16:46 Clumped Platelets Few 07/23/18 16:46 Plt Clumps, EDTA Not Reportable 07/23/18 16:46 Large Platelets Not Reportable 07/23/18 16:46 Giant Platelets Not Reportable 07/23/18 16:46 Platelet Satelliting Not Reportable 07/23/18 16:46 Plt Morphology Comment Not Reportable 07/23/18 16:46 RBC Morphology Not Reportable 07/23/18 16:46 Dimorphic RBCs Not Reportable 07/23/18 16:46 Polychromasia Not Reportable 07/23/18 16:46 Hypochromasia Not Reportable 07/23/18 16:46 Poikilocytosis Few 07/23/18 16:46 Anisocytosis Not Reportable 07/23/18 16:46 Microcytosis Not Reportable 07/23/18 16:46 Macrocytosis Not Reportable 07/23/18 16:46 Spherocytes Not Reportable 07/23/18 16:46 Pappenheimer Bodies Not Reportable 07/23/18 16:46 Sickle Cells Not Reportable 07/23/18 16:46 Target Cells Not Reportable 07/23/18 16:46 Tear Drop Cells Not Reportable 07/23/18 16:46 Ovalocytes Few 07/23/18 16:46 Helmet Cells Not Reportable 07/23/18 16:46 [place] Bodies Not Reportable 07/23/18 16:46 [place] Rings Not Reportable 07/23/18 16:46 [place] Cells Not Reportable 07/23/18 16:46 Bite Cells Not Reportable 07/23/18 16:46 Crenated Cell Not Reportable 07/23/18 16:46 Elliptocytes Not Reportable 07/23/18 16:46 Acanthocytes (Spur) Not Reportable 07/23/18 16:46 Rouleaux Not Reportable 07/23/18 16:46 Hemoglobin C Crystals Not Reportable 07/23/18 16:46 Schistocytes Not Reportable 07/23/18 16:46 Malaria parasites Not Reportable 07/23/18 16:46 Min Bodies Not Reportable 07/23/18 16:46 Hem Pathologist Commnt No 07/23/18 16:46 PT 12.4 Sec. (12.2-14.9) 07/23/18 17:11 INR 0.87 (0.87-1.13) 07/23/18 17:11 APTT 28.3 Sec. (24.2-36.6) 07/23/18 17:11 Sodium 137 mmol/L (137-145) 07/26/18 05:50 Potassium 3.9 mmol/L (3.6-5.0) 07/26/18 05:50 Chloride 102.4 mmol/L (98-107) 07/26/18 05:50 Carbon Dioxide 22 mmol/L (22-30) 07/26/18 05:50 Anion Gap 17 mmol/L 07/26/18 05:50 BUN 3 mg/dL (9-20) L 07/26/18 05:50 Creatinine 0.6 mg/dL (0.8-1.5) L 07/26/18 05:50 Estimated GFR > 60 ml/min 07/26/18 05:50 BUN/Creatinine Ratio 5 % 07/26/18 05:50 Glucose 109 mg/dL (75-100) H 07/26/18 05:50 POC Glucose 86 (70-105) 07/26/18 12:53 Lactic Acid 0.90 mmol/L (0.7-2.0) 07/25/18 13:29 Calcium 8.1 mg/dL (8.4-10.2) L 07/26/18 05:50 Magnesium 1.80 mg/dL (1.7-2.3) 07/26/18 05:50 Total Bilirubin 0.70 mg/dL (0.1-1.2) 07/26/18 05:50 AST 28 units/L (5-40) 07/26/18 05:50 ALT 11 units/L (7-56) 07/26/18 05:50 Alkaline Phosphatase 106 units/L (35-129) 07/26/18 05:50 Total Creatine Kinase 81 units/L (55-170) 07/23/18 17:11 Total Protein 5.8 g/dL (6.3-8.2) L 07/26/18 05:50 Albumin 3.5 g/dL (3.9-5) L 07/26/18 05:50 Albumin/Globulin Ratio 1.5 % 07/26/18 05:50 TSH 0.731 mlU/mL (0.270-4.200) 07/23/18 18:25 Urine Color Yellow (Yellow) 07/23/18 17:15 Urine Turbidity Slightly-cloudy (Clear) 07/23/18 17:15 Urine pH 5.0 (5.0-7.0) 07/23/18 17:15 Ur Specific [place] 1.011 (1.003-1.030) 07/23/18 17:15 Urine Protein <15 mg/dl mg/dL (Negative) 07/23/18 17:15 Urine Glucose (UA) Neg mg/dL (Negative) 07/23/18 17:15 Urine Ketones Tr mg/dL (Negative) 07/23/18 17:15 Urine Blood Mod (Negative) 07/23/18 17:15 Urine Nitrite Neg (Negative) 07/23/18 17:15 Urine Bilirubin Neg (Negative) 07/23/18 17:15 Urine Urobilinogen < 2.0 mg/dL (<2.0) 07/23/18 17:15 Ur Leukocyte Esterase Neg (Negative) 07/23/18 17:15 Urine WBC (Auto) 2.0 /HPF (0.0-6.0) 07/23/18 17:15 Urine RBC (Auto) 1.0 /HPF (0.0-6.0) 07/23/18 17:15 U Epithel Cells (Auto) < 1.0 /HPF (0-13.0) 07/23/18 17:15 Urine Mucus Few /HPF 07/23/18 17:15 Salicylates < 0.3 mg/dL (2.8-20.0) L 07/23/18 15:52 Urine Opiates Screen Presumptive negative 07/23/18 17:15 Urine Methadone Screen Presumptive negative 07/23/18 17:15 Acetaminophen < 5.0 ug/mL (10.0-30.0) L 07/23/18 15:52 Ur Barbiturates Screen Presumptive negative 07/23/18 17:15 Ur Phencyclidine Scrn Presumptive negative 07/23/18 17:15 Ur Amphetamines Screen Presumptive negative 07/23/18 17:15 U Benzodiazepines Scrn Presumptive negative 07/23/18 17:15 Urine Cocaine Screen Presumptive negative 07/23/18 17:15 U Marijuana (THC) Screen Presumptive negative 07/23/18 17:15 Drugs of Abuse Note Disclamer 07/23/18 17:15 Plasma/Serum Alcohol 0.46 % (0-0.07) H 07/23/18 15:52 Active Medications - Current Medications Current Medications: Generic Name Dose Route Start Last Admin Trade Name Freq PRN Reason Stop Dose Admin Acetaminophen 650 mg 07/23/18 23:46 07/24/18 19:56 Tylenol PO 650 mg Q4H PRN Administration Pain MILD(1-3)/Fever >100.5/SAHU Amlodipine Besylate 10 mg 07/25/18 13:00 07/26/18 09:33 Norvasc PO 10 mg QDAY LEELA Administration Dextrose 50 ml 07/23/18 16:40 D50w (25gm) Syringe IV PRN PRN Hypoglycemia Enoxaparin Sodium 40 mg 07/24/18 10:00 07/26/18 09:33 Lovenox SUB-Q 40 mg QDAY@1000 LEELA Administration Hydralazine HCl 10 mg 07/25/18 12:37 Apresoline IV Q6HR PRN Blood Pressure Ondansetron HCl 4 mg 07/23/18 23:46 Zofran IV Q8H PRN Nausea And Vomiting Oxycodone/Acetaminophen 1 tab 07/24/18 20:37 07/26/18 00:00 Percocet 5/325 PO 1 tab Q4H PRN Administration Pain, Moderate (4-6) Pantoprazole Sodium 40 mg 07/24/18 13:00 07/26/18 09:33 Protonix PO 40 mg QDAY LEELA Administration Sodium Chloride 10 ml 07/24/18 10:00 07/26/18 09:33 Sodium Chloride Flush Syringe 10 Ml IV 10 ml BID LEELA Administration Sodium Chloride 10 ml 07/23/18 23:46 Sodium Chloride Flush Syringe 10 Ml IV PRN PRN LINE FLUSH
[2018-07-26] MEDS ORDERED: ATIVAN IV PRN (14:30)
[2018-07-26] MEDS: COREG PO SCH ×2 (14:58→21:49)
[2018-07-26] MEDS: HABITROL TD SCH (17:41)
[2018-07-26] MEDS: VALIUM PO SCH (21:49)
[2018-07-27] MEDS: HABITROL TD SCH (09:24)
[2018-07-27] MEDS: PROTONIX PO SCH (09:24)
[2018-07-27] MEDS: COREG PO SCH (09:25)
[2018-07-27] MEDS: VALIUM PO SCH (09:25)
[2018-07-27] MEDS: NORVASC PO SCH (09:25)
[2018-07-27] MEDS: TYLENOL PO PRN (09:26)
[2018-07-27] MEDS: SODIUM CHLORIDE FLUSH SYRINGE 10 ML IV SCH (09:28)
[2018-07-27] MEDS: LOVENOX SUB-Q SCH (09:28)
--- NOTE | 2018-07-27 13:39 | Consultation ---
Medications and Allergies Allergies Allergy/AdvReac Type Severity Reaction Status Date / Time No Known Allergies Allergy Verified 03/03/18 03:08 Home Medications Medication Instructions Recorded Confirmed Last Taken Type Carvedilol [Coreg] 25 mg PO BID #60 tablet 07/27/18 Unknown Rx Citalopram Hydrobromide [celeXA] 20 mg PO DAILY #30 tablet 07/27/18 Unknown Rx Folic Acid [Folvite] 1 mg PO QDAY #30 tablet 07/27/18 Unknown Rx Multivitamin [Multiple Vitamins] 1 each PO DAILY #30 tablet 07/27/18 Unknown Rx Pregabalin [Lyrica] 50 mg PO TID 07/27/18 07/27/18 Unknown History Thiamine [Vitamin B-1] 100 mg PO QDAY #30 tablet 07/27/18 Unknown Rx Zolpidem [Ambien] 5 mg PO QHS 07/27/18 07/27/18 Unknown History amLODIPine [Norvasc] 5 mg PO DAILY #30 tablet 07/27/18 Unknown Rx oxyCODONE /ACETAMINOPHEN [Percocet 1 tab PO Q6HR PRN #10 tablet 07/27/18 Unknown Rx 5/325 mg] Active Meds: Active Medications Acetaminophen (Tylenol) 650 mg PO Q4H PRN PRN Reason: Pain MILD(1-3)/Fever >100.5/SAHU Last Admin: 07/27/18 09:26 Dose: 650 mg Documented by: Amlodipine Besylate (Norvasc) 10 mg PO QDAY [facility] Last Admin: 07/27/18 09:25 Dose: 10 mg Documented by: Carvedilol (Coreg) 25 mg PO BID [facility] Last Admin: 07/27/18 09:25 Dose: 25 mg Documented by: Dextrose (D50w (25gm) Syringe) 50 ml IV PRN PRN PRN Reason: Hypoglycemia Diazepam (Valium) 5 mg PO BID [facility] Last Admin: 07/27/18 09:25 Dose: 5 mg Documented by: Enoxaparin Sodium (Lovenox) 40 mg SUB-Q QDAY@1000 [facility] Last Admin: 07/27/18 09:28 Dose: 40 mg Documented by: Hydralazine HCl (Apresoline) 10 mg IV Q6HR PRN PRN Reason: Blood Pressure Lorazepam (Ativan) 2 mg IV Q4H PRN PRN Reason: Agitation Last Admin: 07/27/18 02:23 Dose: 2 mg Documented by: Nicotine (Habitrol) 21 mg TD QDAY [facility] Last Admin: 07/27/18 09:24 Dose: 21 mg Documented by: Ondansetron HCl (Zofran) 4 mg IV Q8H PRN PRN Reason: Nausea And Vomiting Oxycodone/Acetaminophen (Percocet 5/325) 1 tab PO Q4H PRN PRN Reason: Pain, Moderate (4-6) Last Admin: 07/26/18 00:00 Dose: 1 tab Documented by: Pantoprazole Sodium (Protonix) 40 mg PO QDAY [facility] Last Admin: 07/27/18 09:24 Dose: 40 mg Documented by: Sodium Chloride (Sodium Chloride Flush Syringe 10 Ml) 10 ml IV BID [facility] Last Admin: 07/27/18 09:28 Dose: 10 ml Documented by: Sodium Chloride (Sodium Chloride Flush Syringe 10 Ml) 10 ml IV PRN PRN PRN Reason: LINE FLUSH Mental Status Exam - Vital signs Last Vital Signs Temp 97.6 F 07/27/18 07:17 Pulse 62 07/27/18 10:00 Resp 17 07/27/18 10:00 BP 138/85 07/27/18 09:25 Pulse Ox 98 07/27/18 10:00 Results Result Diagrams: 07/24/18 08:02 07/26/18 05:50 All other labs normal.
[2018-07-27] MEDS ORDERED: PERCOCET 5/325 PO PRN (13:55)
[2018-07-27] MEDS: PERCOCET 5/325 PO PRN (13:59)
[2018-07-27] MEDS ORDERED: NON-FORMULARY (Pregabalin [Lyrica] 50 MG) PO SCH (14:00)
[2018-07-27 14:02] VITALS: BP 125/70
--- NOTE | 2018-07-27 14:02 | Discharge Summary ---
Providers - Providers Date of Admission: 07/23/18 22:55 Attending physician: LAMBERTO MCNULTY MD 07/26/18 09:38 Consult to Mental Health [CONS] Routine Reason For Exam: depression and alcohol detoxification Place consult to:: mental health Notified:: yes Phone number called:: [phone] Was contact made?: Yes Time called:: 09:43 Comment:: colby Primary care physician: ACCOUNT DIRECTOR Hospitalization Reason for admission: altered mental status Condition: Stable Hospital course: 71-year-old male with a history of hypertension, migraine was brought to the emergency room for altered mental status. The patient is able to give his history however he does not remember how he got here. He was found to be intoxicated, he was agitated and given Garry Mustafadon to get CT. Patient was admitted and managed for alcohol intoxication and lactic acidosis which resolved with hydration. He did exhibit some changes in mental status although when follow question it appears that the patient was patient's second. He continuously asks for opioids for management of migraine this was verified with his pharmacist that he was given Tylenol 1 days of periods recently. I advised the patient that he needs to have a follow-up with a pain specialist and also a neurologist outpatient for the migraines. Is clinically improved and stable for discharge again counseling was given to the patient on alcohol cessation and the importance of this and he verbalized understanding all imaging studies were reviewed and negative Acute alcohol intoxication Lactic acidosis Acute toxic/metabolic encephalopathy Hypokalemia/Hypomagnesemia -Resolved status post repletion Hypoglycemia -Stable Hypertension -Fairly controlled on amlodipine, Coreg added History of depression -Patient requested for evaluation by the mental health team, consult placed Migraine headaches Disposition: - TO HOME OR SELFCARE Time spent for discharge: 35 mins Core Measure Documentation - Palliative Care Palliative Care/ Comfort Measures: Not Applicable - Core Measures Any of the following diagnoses?: none Exam - Physical Exam Narrative exam: VITAL SIGNS: Reviewed. GENERAL: The patient appeared well nourished and normally developed, Vital signs as documented. HEAD: No signs of head trauma. EYES: Pupils are equal. Extraocular motions intact. EARS: Hearing grossly intact. MOUTH: Oropharynx is normal. NECK: No adenopathy, no JVD. CHEST: Chest with clear breath sounds bilaterally. No wheezes, rales, or rhonchi. CARDIAC: Regular rate and rhythm. S1 and S2, without murmurs, gallops, or rubs. VASCULAR: No Edema. Peripheral pulses normal and equal in all extremities. ABDOMEN: Soft, non tender and non distended. No rebound or guarding, and no masses palpated. Bowel Sounds normal. MUSCULOSKELETAL: Good range of motion of all major joints. Extremities without clubbing, cyanosis or edema. NEUROLOGIC EXAM: Alert and oriented x 3 No focal sensory or strength deficits. Speech normal. Follows commands. PSYCHIATRIC: Mood normal. SKIN: No rash or lesions. - Constitutional Vitals: Temp Pulse Resp BP Pulse Ox 97.6 F 62 17 138/85 98 07/27/18 07:17 07/27/18 10:00 07/27/18 10:00 07/27/18 09:25 07/27/18 10:00 Plan Activity: advance as tolerated, fall precautions Diet: low salt Additional Instructions: continue to follow with family doctor and pain specialist Follow up with: PRIMARY CARE,MD [Primary Care Provider] - 3-5 Days Prescriptions: Citalopram Hydrobromide [celeXA] 20 mg PO DAILY #30 tablet Carvedilol [Coreg] 25 mg PO BID #60 tablet Folic Acid [Folvite] 1 mg PO QDAY #30 tablet Multivitamin [Multiple Vitamins] 1 each PO DAILY #30 tablet amLODIPine [Norvasc] 5 mg PO DAILY #30 tablet oxyCODONE /ACETAMINOPHEN [Percocet 5/325 mg] 1 tab PO Q6HR PRN #10 tablet PRN Reason: Pain Thiamine [Vitamin B-1] 100 mg PO QDAY #30 tablet
[2018-07-27] MEDS ORDERED: LYRICA PO SCH (16:00)
[2018-07-27] MEDS ORDERED: AMBIEN PO SCH (22:00)
[2018-07-28] MEDS ORDERED: NORVASC PO SCH (10:00)
[2018-07-28] MEDS ORDERED: celeXA PO SCH (10:00)
== END 2018-07-27 15:53 | disposition home or self-care (01) | DRG 896 ==
LOC: ED 14:41 → 4A 22:55 → 2B-ACE 07-26 14:49 → UNDODISIN 07-26 15:52
PROVIDERS: ADMIT Internal Medicine; ATTEND Internal Medicine
DX: F10.929 Alcohol use, unspecified with intoxication, unspecified (principal); G92 Toxic encephalopathy; E87.2 Acidosis; E87.6 Hypokalemia; E16.2 Hypoglycemia, unspecified; E83.42 Hypomagnesemia; I10 Essential (primary) hypertension; G43.909 Migraine, unspecified, not intractable, without status migrainosus; Z82.49 Family history of ischemic heart disease and other diseases of the circulatory system; Z90.49 Acquired absence of other specified parts of digestive tract; Z90.89 Acquired absence of other organs
CPT/HCPCS: 36415; 70450; 71045; 72125; 74177; 80048; 80053; 80307; 80320; 81001; 82140; 82550; 82947; 82962; 83735; 84443; 85007; 85025; 85610; 85730; 87040; 87086; 93005; 93010; 96372; G0378; G0480; J0696; J1630; J1650; J1956; J2060; J3475; J3486; J7030; Q9967

== ENCOUNTER 2018-08-22 20:57 | Emergency (ER) | payer MEDICARE ==
[2018-08-22 21:41] LABS: Basophils % (Auto) 0.2 % (0.0-1.8); Eosinophils % (Auto) 0.2 % (0.0-4.3); Hematocrit 44.4 % (35.5-45.6); Hemoglobin 15.1 gm/dl (11.8-15.2); Lymphocytes # (Auto) 0.9 K/mm3 (1.2-5.4); Lymphocytes % (Auto) 20.4 % (13.4-35.0); Mean Corpuscular HGB Conc 34 % (32-34); Mean Corpuscular Volume 95 fl (84-94); Monocytes # (Auto) 0.4 K/mm3 (0.0-0.8); Monocytes % (Auto) 9.9 % (0.0-7.3); Platelet Count 399 K/mm3 (140-440); Red Blood Count 4.67 M/mm3 (3.65-5.03); Red Cell Distribution Width 16.9 % (13.2-15.2)
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
[2018-08-22 21:59] LABS: Bilirubin,Urine NEG (Negative); Blood,Urine SM (Negative); Color,Urine Yellow (Yellow); Hyaline Casts,Urine 8 /LPF; Mucus,Urine 1+ /HPF; Protein,Urine <15 mg/dL mg/dL (Negative); Urobilinogen,Urine < 2.0 mg/dL (<2.0)
[2018-08-22 22:05] LABS: BUN/Creatinine Ratio 8; Blood Urea Nitrogen 9 mg/dL (9-20); Calcium 9.4 mg/dL (8.4-10.2); Hemolysis Index 5
[2018-08-22 22:07] LABS: Amphetamine Screen,Urine PRESUMPTIVE NEGATIVE; Benzodiazepines Screen,Urine PRESUMPTIVE NEGATIVE; Cannabinoid Screen,Urine PRESUMPTIVE NEGATIVE; Cocaine Screen,Urine PRESUMPTIVE NEGATIVE; Methadone Screen,Urine PRESUMPTIVE NEGATIVE; Opiate Screen,Urine PRESUMPTIVE NEGATIVE
[2018-08-22 22:21] LABS: Alanine Aminotransferase 13 units/L (7-56); Albumin 3.5 g/dL (3.9-5)
[2018-08-22 22:28] LABS: Bilirubin,Direct < 0.2 mg/dL (0-0.2)
[2018-08-22] MEDS ORDERED: ATIVAN ONE (22:55)
[2018-08-22] MEDS ORDERED: ATIVAN PO PRN ×2 (22:55)
[2018-08-23 09:10] VITALS: BP 123/71
--- NOTE | 2018-08-23 09:53 | Consultation ---
History of Present Illness - Reason for Consult Consult date: 08/23/18 Reason for consult: Mental Health Evaluation Requesting physician: ALBER PRAKASH - Chief Complaint Chief complaint: "I'm very lonely" - History of Present Psychiatric Illness 73 y.o. white male who presented to the ER for self injury to his abdomen. Today the patient was llam during the assessment. He stated that he is struggling with being lonely. He stated that he retired from his job 9 years ago and have no family in the local area. He stated that he does not leave his home often. He stated he has had suicidal thoughts recently and decide to cut himself on his abdomen (superficial) prior to arriving to the ER. He stated that he attempted suicide in the past. He stated that he has a hx of depression and took several antidepressants in the past. He rate his depression 6/10, with 10 being the worse. He denies SI/HI's and AVH's. He acknowledged erratic sleep and a poor appetite. He denies any manic episodes. He denies recreational drug use, but stated that does drink (etoh) sometimes. Medications and Allergies Allergies Allergy/AdvReac Type Severity Reaction Status Date / Time No Known Allergies Allergy Verified 03/03/18 03:08 Home Medications Medication Instructions Recorded Confirmed Last Taken Type Carvedilol [Coreg] 25 mg PO BID #60 tablet 07/27/18 08/22/18 Unknown Rx Citalopram Hydrobromide [celeXA] 20 mg PO DAILY #30 tablet 07/27/18 08/22/18 Unknown Rx Folic Acid [Folvite] 1 mg PO QDAY #30 tablet 07/27/18 08/22/18 Unknown Rx Multivitamin [Multiple Vitamins] 1 each PO DAILY #30 tablet 07/27/18 08/22/18 Unknown Rx Pregabalin [Lyrica] 50 mg PO TID 07/27/18 08/22/18 Unknown History Thiamine [Vitamin B-1] 100 mg PO QDAY #30 tablet 07/27/18 08/22/18 Unknown Rx Zolpidem [Ambien] 5 mg PO QHS 07/27/18 08/22/18 Unknown History amLODIPine [Norvasc] 5 mg PO DAILY #30 tablet 07/27/18 08/22/18 Unknown Rx oxyCODONE /ACETAMINOPHEN [Percocet 1 tab PO Q6HR PRN #10 tablet 07/27/18 08/22/18 Unknown Rx 5/325 mg] Active Meds: Active Medications Lorazepam (Ativan) 2 mg PO Q1HR PRN PRN Reason: CIWA-Ar 8-15 Lorazepam (Ativan) 4 mg PO Q1HR PRN PRN Reason: CIWA-Ar 16-25 Past psychiatric history - Past Medical History Past Medical History: hypertension, other (Renal Disease) Past Surgical History: No surgical history - past Psychiatric treatment and history psychiatric treatment history: Hx of depression. Denies a fam psy hx. - Social History Social history: Lives alone Mental Status Exam - Vital signs Last Vital Signs Temp 98.8 F 08/23/18 09:09 Pulse 53 L 08/23/18 09:09 Resp 18 08/23/18 09:12 BP 123/71 08/23/18 09:09 Pulse Ox 98 08/23/18 09:12 - Exam Narrative exam: MSE: Appearance: calm, cooperative Behavior: regular eye contact Speech: regular rate and tone Mood: "lonely" Affect: flat Thought Process: circumstantial Thought Content: denies SI/HI's and AVH's Motor Activity: sitting up in bed Cognition: A/O x 3 Insight: variable Judgment: poor Results Result Diagrams: 08/22/18 21:19 08/22/18 21:19 Abnormal lab results 08/22/18 08/22/18 08/22/18 Range/Units 21:19 21:19 21:19 WBC (4.5-11.0) K/mm3 MCV (84-94) fl RDW (13.2-15.2) % [place] % (Auto) (0.0-7.3) % Lymph # (1.2-5.4) K/mm3 Chloride 96.4 L (98-107) mmol/L Glucose 107 H (75-100) mg/dL Albumin (3.9-5) g/dL Salicylates 1.3 L (2.8-20.0) mg/dL Acetaminophen < 5.0 L (10.0-30.0) ug/mL 08/22/18 08/22/18 Range/Units 21:19 Unknown WBC 4.4 L (4.5-11.0) K/mm3 MCV 95 H (84-94) fl RDW 16.9 H (13.2-15.2) % [place] % (Auto) 9.9 H (0.0-7.3) % Lymph # 0.9 L (1.2-5.4) K/mm3 Chloride (98-107) mmol/L Glucose (75-100) mg/dL Albumin 3.5 L (3.9-5) g/dL Salicylates (2.8-20.0) mg/dL Acetaminophen (10.0-30.0) ug/mL All other labs normal. Assessment and Plan Assessment and plan: Impression: MDD. Today the patient was calm during the assessment. UDS is negative DDx: R/O Bipolar DO, R/O Personality DO Recommendation/Plan: Continue 1013 and start Remeron 15 mg PO HS for depression. Discussed possible suicidality/medication induced lynnette reference Remeron, he verbalized understanding. Dispo: The patient was referred to inpatient psy services. Will staff with Dr Mirella Marquez,
[2018-08-23] MEDS ORDERED: REMERON PO SCH (22:00)
== END 2018-08-23 12:42 ==
LOC: ED 20:57
DX: T14.91XA Suicide attempt, initial encounter (principal); F32.9 Major depressive disorder, single episode, unspecified; I12.9 Hypertensive chronic kidney disease with stage 1 through stage 4 chronic kidney disease, or unspecified chronic kidney disease; N18.9 Chronic kidney disease, unspecified; Z90.89 Acquired absence of other organs; Z87.448 Personal history of other diseases of urinary system; Z90.49 Acquired absence of other specified parts of digestive tract; Z98.890 Other specified postprocedural states; X78.9XXA Intentional self-harm by unspecified sharp object, initial encounter; Y93.89 Activity, other specified; Y92.89 Other specified places as the place of occurrence of the external cause; Y99.8 Other external cause status
CPT/HCPCS: 36415; 80048; 80076; 80307; 81001; 85025; 99284; G0480; 80320

== ENCOUNTER 2018-08-23 11:59 | Inpatient (IN) | payer MEDICARE ==
[2018-08-23] MEDS ORDERED: PERCOCET 5/325 PO PRN (13:50)
[2018-08-23] MEDS ORDERED: NON-FORMULARY (Pregabalin [Lyrica] 50 MG) PO SCH (14:00)
[2018-08-23] MEDS: LYRICA PO SCH ×2 (18:23→21:00)
[2018-08-23] MEDS ORDERED: ATIVAN PO PRN (20:45)
[2018-08-23] MEDS ORDERED: ZOFRAN IV PRN (21:19)
[2018-08-23] MEDS: COREG PO SCH (21:39)
[2018-08-23] MEDS: LIBRIUM PO SCH (21:40)
[2018-08-23] MEDS ORDERED: AMBIEN PO SCH (22:00)
[2018-08-24 08:11] LABS: Chol/HDL Ratio 2.72 %
[2018-08-24] MEDS: LYRICA PO SCH ×3 (08:12→21:30)
[2018-08-24] MEDS: VITAMIN B-1 PO SCH (09:49)
[2018-08-24] MEDS: LIBRIUM PO SCH ×2 (09:50→21:30)
[2018-08-24] MEDS: celeXA PO SCH (09:50)
[2018-08-24] MEDS: NORVASC PO SCH (09:50)
[2018-08-24] MEDS: FOLVITE PO SCH (09:50)
[2018-08-24] MEDS: COREG PO SCH ×2 (09:58→21:31)
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
--- NOTE | 2018-08-24 12:54 | History and Physical Report ---
History of Present Illness Date of admission: 08/23/18 14:47 Chief complaint: Schizophrenia History of present illness: 73 YO Male with HTN, Migraine Headache, HLD, BPH [facility] and treatment. Pt seen and evaluated in his room. Pt denies fever, chills, CP, Headache, productive cough, skin rash, or recent ill contacts. No reported nursing events. Pt is cooperative with exam and interview. Past History Past Medical History: hypertension, hyperlipidemia, other (BPH) Past Surgical History: bowel surgery Social history: , lives with family Family history: hypertension Medications and Allergies Allergies Allergy/AdvReac Type Severity Reaction Status Date / Time No Known Allergies Allergy Verified 03/03/18 03:08 Home Medications Medication Instructions Recorded Confirmed Last Taken Type Carvedilol [Coreg] 25 mg PO BID #60 tablet 07/27/18 08/23/18 Unknown Rx Citalopram Hydrobromide [celeXA] 20 mg PO DAILY #30 tablet 07/27/18 08/23/18 Unknown Rx Folic Acid [Folvite] 1 mg PO QDAY #30 tablet 07/27/18 08/23/18 Unknown Rx Multivitamin [Multiple Vitamins] 1 each PO DAILY #30 tablet 07/27/18 08/23/18 Unknown Rx Pregabalin [Lyrica] 50 mg PO TID 07/27/18 08/23/18 Unknown History Thiamine [Vitamin B-1] 100 mg PO QDAY #30 tablet 07/27/18 08/23/18 Unknown Rx Zolpidem [Ambien] 5 mg PO QHS 07/27/18 08/23/18 Unknown History amLODIPine [Norvasc] 5 mg PO DAILY #30 tablet 07/27/18 08/23/18 Unknown Rx oxyCODONE /ACETAMINOPHEN [Percocet 1 tab PO Q6HR PRN #10 tablet 07/27/18 08/23/18 Unknown Rx 5/325 mg] Active Meds: Active Medications Amlodipine Besylate (Norvasc) 5 mg PO DAILY [facility] Last Admin: 08/24/18 09:50 Dose: 5 mg Documented by: Carvedilol (Coreg) 25 mg PO BID [facility] Last Admin: 08/24/18 09:58 Dose: Not Given Documented by: Chlordiazepoxide HCl (Librium) 25 mg PO BID [facility] Last Admin: 08/24/18 09:50 Dose: 25 mg Documented by: Citalopram Hydrobromide (Celexa) 20 mg PO DAILY [facility] Last Admin: 08/24/18 09:50 Dose: 20 mg Documented by: Folic Acid (Folvite) 1 mg PO QDAY [facility] Last Admin: 08/24/18 09:50 Dose: 1 mg Documented by: Lorazepam (Ativan) 1 mg PO Q6HR PRN PRN Reason: Agitation Ondansetron HCl (Zofran) 4 mg IV Q8H PRN PRN Reason: Nausea And Vomiting Oxycodone/Acetaminophen (Percocet 5/325) 1 tab PO Q6HR PRN PRN Reason: Pain Pregabalin (Lyrica) 50 mg PO TID [facility] Last Admin: 08/24/18 08:12 Dose: 50 mg Documented by: Thiamine HCl (Vitamin B-1) 100 mg PO QDAY [facility] Last Admin: 08/24/18 09:49 Dose: 100 mg Documented by: Zolpidem Tartrate (Ambien) 5 mg PO QHS [facility] Last Admin: 08/23/18 21:39 Dose: 5 mg Documented by: Review of Systems Constitutional: no weight loss, no chills, no sweats Ears, nose, mouth and throat: no ear pain, no tinnitis, no decreased hearing, no nose pain, no nasal congestion, no sinus pressure Cardiovascular: no chest pain, no orthopnea, no rapid/irregular heart beat Respiratory: no cough, no cough with sputum, no excessive sputum, no shortness of breath Gastrointestinal: no abdominal pain, no diarrhea, no constipation, no hematemesis Genitourinary Male: no dysuria, no hematuria, no flank pain, no urinary frequency, no urinary hesitancy, no nocturia Rectal: no pain, no incontinence, no bleeding Musculoskeletal: no neck stiffness, no neck pain, no low back pain, no shooting leg pain Integumentary: no rash, no pruritis, no redness, no sores, no wounds Neurological: no head injury, no transient paralysis, no paralysis, no weakness, no parathesias, no numbness, no tingling, no seizures, no syncope Psychiatric: no anxiety, no memory loss, no insomnia, no hypersomnia, no change in appetite Endocrine: no cold intolerance, no heat intolerance, no polyphagia, no excessive thirst, no polydipsia, no polyuria Hematologic/Lymphatic: no easy bruising, no easy bleeding, no lymphadenopathy, no lymphedema Allergic/Immunologic: no urticaria, no allergic rhinitis, no wheezing, no persistent infections Exam - Constitutional Vitals: Temp Pulse Resp BP Pulse Ox 98.7 F 60 18 104/54 97 08/24/18 07:51 08/24/18 09:50 08/23/18 19:52 08/24/18 07:51 08/24/18 07:51 General appearance: Present: no acute distress, well-nourished - EENT Eyes: Present: PERRL ENT: hearing intact, clear oral mucosa - Neck Neck: Present: supple, normal ROM - Respiratory Respiratory effort: normal Respiratory: bilateral: CTA - Cardiovascular Heart Sounds: Present: S1 & S2. Absent: rub, click - Extremities Extremities: pulses symmetrical, No edema Peripheral Pulses: within normal limits - Abdominal General gastrointestinal: Present: soft, non-tender, non-distended, normal bowel sounds Male genitourinary: Present: normal - Integumentary Integumentary: Present: clear, warm, dry - Musculoskeletal Musculoskeletal: gait normal, strength equal bilaterally - Psychiatric Psychiatric: appropriate mood/affect, intact judgment & insight - Neurologic Neurologic: CNII-XII intact, moves all extremities Results - Labs Labs: Abnormal lab results 08/23/18 08/24/18 Range/Units 16:45 07:16 POC Glucose 121 H (70-105) HDL Cholesterol 68 H (40-59) mg/dL Assessment and Plan HTN: Monitor BP q shift, continue prehospital medication with Coreg and Amlodipine, Continue medical management. HLD: Low cholesterol diet,
[2018-08-24] MEDS: DESYREL PO SCH (21:37)
[2018-08-24] MEDS: REMERON PO SCH (21:38)
[2018-08-25] MEDS: LYRICA PO SCH ×3 (08:24→20:53)
[2018-08-25] MEDS: LIBRIUM PO SCH ×2 (09:32→22:26)
[2018-08-25] MEDS: celeXA PO SCH (09:32)
[2018-08-25] MEDS: VITAMIN B-1 PO SCH (09:32)
[2018-08-25] MEDS: FOLVITE PO SCH (09:32)
[2018-08-25] MEDS: COREG PO SCH ×2 (09:33→22:33)
[2018-08-25] MEDS: NORVASC PO SCH (09:34)
--- NOTE | 2018-08-25 11:00 | Progress Note ---
Subjective Date of service: 08/25/18 Principal diagnosis: Major depressive disorder, Alcohol use disorder Subjective Comment: Patient is depressed, hopeless and helpless. He wants to be put back on Suboxone which he took before and found beneficial. He was able to stay off drugs and alcohol, was functional and productive. He feels to tired and sedated this morning. He continues to be suicidal but denies suicidal plans or intent. Objective - Criteria for Continued Treatment Criteria for Continued Treatment: Improving Level of Functioning, Understanding Diagnosis and need for Medication, Improving Treatment / Medication Compliance, Stablizing Level of Functioning, Improving Emotional/Socia - Mental Status Mental Status: Oriented x 3 - Objective Observation Participation Level: Moderate Assessment and Plan - Patient Problems (1) MDD (major depressive disorder), recurrent severe, without psychosis Current Visit: Yes Status: Acute (2) Alcohol use disorder, severe, dependence Current Visit: Yes Status: Acute Plan to address problem: Patient will be admitted for inpatient psychiatric evaluation, medication adjustment and close monitoring The patient's behavior, mood, sleep and appetite will be closely monitored. Patient will be enrolled in individual and group therapeutic sessions and encouraged to attend. Patient will be provided with a safe and structured environment. Patient's physical health needs will be addressed by the Hospitalist. Social Assessment will be completed and the Inshore Undersea Warfare Officer will work with patient and family to ensure a suitable and safe disposition Medication adjustment will be made as clinically indicated Will need a referral to [facility] The patient agreed on the treatment plan, understood the risk, benefit, alternative treatment, potential consequence of no treatment, and gave informed consent.
[2018-08-25] MEDS: REMERON PO SCH (22:24)
[2018-08-25] MEDS: DESYREL PO SCH (22:24)
[2018-08-26] MEDS ORDERED: MELATONIN PO PRN (08:38)
--- NOTE | 2018-08-26 08:38 | Progress Note ---
Subjective Date of service: 08/26/18 Principal diagnosis: Major depressive disorder, Alcohol use disorder Subjective Comment: Patient reports not being able to sleep last night; still feels depressed, hopeless and helpless. He continues to be suicidal but denies suicidal plans or intent. He denies AVH/Paranoia. He is compliant with meds and denies side effects. Nursing staff reports that he is isolating in his room. Objective - Criteria for Continued Treatment Criteria for Continued Treatment: Improving Level of Functioning, Reducing Isolative Behaviors, Improving Treatment / Medication Compliance, Stablizing Level of Functioning, Improving Emotional/Socia - Mental Status Mental Status: Oriented x 3 - Objective Observation Participation Level: Minimal Assessment and Plan - Patient Problems (1) MDD (major depressive disorder), recurrent severe, without psychosis Current Visit: Yes Status: Acute (2) Alcohol use disorder, severe, dependence Current Visit: Yes Status: Acute Plan to address problem: Patient will be admitted for inpatient psychiatric evaluation, medication adjustment and close monitoring The patient's behavior, mood, sleep and appetite will be closely monitored. Patient will be enrolled in individual and group therapeutic sessions and encouraged to attend. Patient will be provided with a safe and structured environment. Patient's physical health needs will be addressed by the Hospitalist. Social Assessment will be completed and the Patient Transport Orderly will work with patient and family to ensure a suitable and safe disposition Medication adjustment will be made as clinically indicated Will add Melatonin 5mg qhs for insomnia and Vistaril 50mg q6h prn anxiety Will need a referral to Suboxone Clinic The patient agreed on the treatment plan, understood the risk, benefit, alternative treatment, potential consequence of no treatment, and gave informed consent.
[2018-08-26] MEDS ORDERED: VISTARIL PO PRN (08:39)
[2018-08-26] MEDS ORDERED: ZOFRAN ODT PO PRN (09:06)
[2018-08-26] MEDS: celeXA PO SCH (09:45)
[2018-08-26] MEDS: VITAMIN B-1 PO SCH (09:45)
[2018-08-26] MEDS: LYRICA PO SCH ×3 (09:46→20:47)
[2018-08-26] MEDS: FOLVITE PO SCH (10:50)
[2018-08-26] MEDS: NORVASC PO SCH (10:51)
[2018-08-26] MEDS: COREG PO SCH (10:53)
[2018-08-26] MEDS: DESYREL PO SCH (21:08)
[2018-08-26] MEDS: REMERON PO SCH (21:09)
[2018-08-26] MEDS: LIBRIUM PO SCH (21:09)
[2018-08-27] MEDS: LYRICA PO SCH ×3 (10:23→21:19)
[2018-08-27] MEDS: celeXA PO SCH (10:23)
[2018-08-27] MEDS: FOLVITE PO SCH (10:23)
[2018-08-27] MEDS: VITAMIN B-1 PO SCH (10:23)
--- NOTE | 2018-08-27 20:04 | Progress Note ---
Subjective Principal diagnosis: Major depressive disorder, Alcohol use disorder Subjective Comment: Patient continues to isolate in his room but denies SI/HI. He denies AVH/Paranoia. He is compliant with meds and denies side effects. Objective - Criteria for Continued Treatment Criteria for Continued Treatment: Improving Level of Functioning, Reducing Isolative Behaviors, Improving Treatment / Medication Compliance, Stablizing Level of Functioning, Improving Emotional/Socia - Mental Status Mental Status: Oriented x 3 - Objective Observation Participation Level: Minimal Assessment and Plan - Patient Problems (1) MDD (major depressive disorder), recurrent severe, without psychosis Current Visit: Yes Status: Acute (2) Alcohol use disorder, severe, dependence Current Visit: Yes Status: Acute Plan to address problem: Patient will be admitted for inpatient psychiatric evaluation, medication adjustment and close monitoring The patient's behavior, mood, sleep and appetite will be closely monitored. Patient will be enrolled in individual and group therapeutic sessions and encouraged to attend. Patient will be provided with a safe and structured environment. Patient's physical health needs will be addressed by the Hospitalist. Social Assessment will be completed and the Ethylene Plant Helper will work with patient and family to ensure a suitable and safe disposition Medication adjustment will be made as clinically indicated Continue current meds Will need a referral to Suboxone Clinic The patient agreed on the treatment plan, understood the risk, benefit, altern ative treatment, potential consequence of no treatment, and gave informed consent.
[2018-08-27] MEDS: LIBRIUM PO SCH (21:19)
[2018-08-27] MEDS: DESYREL PO SCH (21:19)
[2018-08-27] MEDS: REMERON PO SCH (21:19)
[2018-08-28] MEDS: celeXA PO SCH (09:44)
[2018-08-28] MEDS: HABITROL TD SCH (09:44)
[2018-08-28] MEDS: LYRICA PO SCH ×3 (09:44→22:09)
[2018-08-28] MEDS: FOLVITE PO SCH (09:44)
[2018-08-28] MEDS: VITAMIN B-1 PO SCH (09:46)
[2018-08-28] MEDS: LIBRIUM PO SCH (22:08)
[2018-08-28] MEDS: DESYREL PO SCH (22:08)
[2018-08-28] MEDS: REMERON PO SCH (22:09)
[2018-08-29] MEDS: LYRICA PO SCH ×3 (08:22→21:06)
--- NOTE | 2018-08-29 08:39 | Progress Note ---
Subjective Date of service: 08/28/18 Principal diagnosis: Major depressive disorder, Alcohol use disorder Subjective Comment: Patient is improving. He is depressed continues to isolate but denies nies SI/HI. He denies AVH/Paranoia. He is compliant with meds and denies side effects. Objective - Criteria for Continued Treatment Criteria for Continued Treatment: Improving Level of Functioning, Reducing Isolative Behaviors, Understanding Diagnosis and need for Medication, Improving Treatment / Medication Compliance, Stablizing Level of Functioning, Improving Emotional/Socia - Mental Status Mental Status: Alert - Objective Observation Participation Level: Moderate Assessment and Plan - Patient Problems (1) MDD (major depressive disorder), recurrent severe, without psychosis Current Visit: Yes Status: Acute (2) Alcohol use disorder, severe, dependence Current Visit: Yes Status: Acute Plan to address problem: Patient will be admitted for inpatient psychiatric evaluation, medication adjustment and close monitoring The patient's behavior, mood, sleep and appetite will be closely monitored. Patient will be enrolled in individual and group therapeutic sessions and encouraged to attend. Patient will be provided with a safe and structured environment. Patient's physical health needs will be addressed by the Hospitalist. Social Assessment will be completed and the Customer Resource Specialist will work with patient and family to ensure a suitable and safe disposition Medication adjustment will be made as clinically indicated Continue current meds Will need a referral to Suboxone Clinic The patient agreed on the treatment plan, understood the risk, benefit, alternative treatment, potential consequence of no treatment, and gave informed consent.
--- NOTE | 2018-08-29 08:43 | Progress Note ---
Subjective Date of service: 08/29/18 Principal diagnosis: Major depressive disorder, Alcohol use disorder Subjective Comment: Patient reports improved mood. He completely denies SI/HI. He denies AVH/Paranoia. He is compliant with meds and denies side effects. Objective - Criteria for Continued Treatment Criteria for Continued Treatment: Improving Level of Functioning, Stablizing Level of Functioning, Improving Emotional/Socia - Mental Status Mental Status: Alert - Objective Observation Participation Level: Full Assessment and Plan - Patient Problems (1) MDD (major depressive disorder), recurrent severe, without psychosis Current Visit: Yes Status: Acute (2) Alcohol use disorder, severe, dependence Current Visit: Yes Status: Acute Plan to address problem: Patient will be admitted for inpatient psychiatric evaluation, medication adjustment and close monitoring The patient's behavior, mood, sleep and appetite will be closely monitored. Patient will be enrolled in individual and group therapeutic sessions and encouraged to attend. Patient will be provided with a safe and structured environment. Patient's physical health needs will be addressed by the Hospitalist. Social Assessment will be completed and the Needle Loom Operator Helper will work with patient and family to ensure a suitable and safe disposition Medication adjustment will be made as clinically indicated Continue current meds Will need a referral to Suboxone Clinic The patient agreed on the treatment plan, understood the risk, benefit, alternative treatment, potential consequence of no treatment, and gave informed consent. Will discharge in am tomorrow
[2018-08-29] MEDS: FOLVITE PO SCH (10:11)
[2018-08-29] MEDS: VITAMIN B-1 PO SCH (10:11)
[2018-08-29] MEDS: HABITROL TD SCH (10:11)
[2018-08-29] MEDS: celeXA PO SCH (10:11)
[2018-08-29] MEDS: REMERON PO SCH (21:07)
[2018-08-29] MEDS ORDERED: MELATONIN PO SCH (22:00)
[2018-08-30 06:26] VITALS: BP 115/54
[2018-08-30] MEDS: LYRICA PO SCH (07:14)
--- NOTE | 2018-08-30 10:41 | Discharge Summary ---
Providers - Providers Date of Admission: 08/23/18 14:47 Date of discharge: 08/30/18 Attending physician: DELMI BREAUX MD 08/23/18 14:11 Consult to Physician [CONS] Routine Comment: Consulting Provider: DMITRIY OCHOA Physician Instructions: History & Physical with complete neurological test Reason For Exam: Medical Management Primary care physician: ROLL ON MAN Hospitalization Reason for admission: Suicide attempt Admitting Diagnosis: F33.2 - MAJOR DEPRESSV DISORDER, RECURRENT SEVERE W/O PSYCH FEATURES Condition: Good Hospital course: The patient was provided inpatient psychiatric treatment with safe and supportive environment, group therapy, individual counseling, psychiatric medication, medication adjustment, adverse effect monitor, medical evaluation, medical treatment, social service assessment, family/social support meeting, placement assessment and psycho-education. The patients mood, anxiety, thoughts, stress management skill, cognition, impulse/anger control, motivation, understanding of disease, compliance to treatment and appreciation on family/social support are improved and stabilized. At the time of discharge, the patient had no suicidal ideas, no homicidal ideas, no aggressive thoughts, no endangering behavior and no debilitating adverse effects. The patient agreed on the treatment plan, understood the risk, benefit, alternative treatment, potential consequence of no treatment, and gave informed consent. The patient was advised to be compliant with medications, not to use drugs and not to drink alcohol. The patient understands that if suicidal ideas, homicidal ideas, or any endangering thoughts arise, the patient should immediately seek for emergent assistance including but not limited to crisis hot line and emergency room. Follow up with out-patient Psychiatrist and PCP within 14 - 21 days of discharge Disposition: DC-01 TO HOME OR SELFCARE Allergies/Adverse Reactions: Allergies No Known Allergies Allergy (Verified 03/03/18 03:08) Vital Signs: Last Vital Signs Temp 97.5 F L 08/30/18 06:14 Pulse 47 L 08/30/18 06:14 Resp 18 08/30/18 06:14 BP 115/54 08/30/18 06:14 Pulse Ox 98 08/30/18 06:14 Last Lab: Laboratory Last Values POC Glucose 78 (70-105) 08/26/18 07:53 5.0 % (4-6) 08/23/18 15:24 Triglycerides 107 mg/dL (2-149) 08/24/18 07:16 Cholesterol 185 mg/dL (50-199) 08/24/18 07:16 99 mg/dL (50-130) 08/24/18 07:16 68 mg/dL (40-59) H 08/24/18 07:16 2.72 % 08/24/18 07:16 - Discharge Diagnoses (1) MDD (major depressive disorder), recurrent severe, without psychosis Status: Acute (2) Alcohol use disorder, severe, dependence Status: Acute Core Measure Documentation - Palliative Care Palliative Care/ Comfort Measures: Not Applicable - Core Measures Any of the following diagnoses?: none - VTE Discharge Requirements Deep Vein Thrombosis/Pulmonary Embolism Present on Admission: No Has pt received <5 days of overlap therapy or INR<2.0: No Anticoagulant overlap therapy prescribed at discharge: No Contraindication No Overlap Therapy order at DC: Not Indicated Exam - Constitutional Vitals: Temp Pulse Resp BP Pulse Ox 97.5 F L 47 L 18 115/54 98 08/30/18 06:14 08/30/18 06:14 08/30/18 06:14 08/30/18 06:14 08/30/18 06:14 General appearance: Present: no acute distress, well-nourished - EENT Eyes: Present: PERRL, EOM intact ENT: hearing intact, clear oral mucosa - Neck Neck: Present: supple, normal ROM - Respiratory Respiratory effort: normal Plan Activity: no restrictions Weight Bearing Status: Full Weight Bearing Diet: regular Follow up with: PRIMARY CARE, [Primary Care Provider] - 7 Days Prescriptions: Melatonin [Melatonin 5MG TAB] 10 mg PO QHS #60 tablet Mirtazapine [Remeron 15mg TAB] 15 mg PO QHS #30 tablet Citalopram Hydrobromide [celeXA] 20 mg PO DAILY #30 tablet Folic Acid [Folvite] 1 mg PO QDAY #30 tablet Nicotine [Habitrol] 14 mg TD QDAY #30 patch Pregabalin [Lyrica] 50 mg PO TID #90 capsule hydrOXYzine PAMOATE [Vistaril] 50 mg PO Q6H PRN #30 capsule PRN Reason: Anxiety Thiamine [Vitamin B-1] 100 mg PO QDAY #30 tablet
[2018-08-30] MEDS: FOLVITE PO SCH (11:01)
[2018-08-30] MEDS: HABITROL TD SCH (11:02)
[2018-08-30] MEDS: VITAMIN B-1 PO SCH (11:06)
[2018-08-30] MEDS: celeXA PO SCH (12:43)
== END 2018-08-30 11:45 | disposition home or self-care (01) | DRG 885 ==
LOC: 3A 11:59 → UNDOADMIN 11:59 → 5A 14:47
PROVIDERS: ADMIT Psychiatry & Neurology Psychiatry; ATTEND Psychiatry & Neurology Psychiatry
DX: F33.2 Major depressive disorder, recurrent severe without psychotic features (principal); F10.288 Alcohol dependence with other alcohol-induced disorder; T14.91XA Suicide attempt, initial encounter; F41.9 Anxiety disorder, unspecified; S31.119A Laceration without foreign body of abdominal wall, unspecified quadrant without penetration into peritoneal cavity, initial encounter; G43.909 Migraine, unspecified, not intractable, without status migrainosus; N40.0 Benign prostatic hyperplasia without lower urinary tract symptoms; F17.210 Nicotine dependence, cigarettes, uncomplicated; Y90.0 Blood alcohol level of less than 20 mg/100 ml; I10 Essential (primary) hypertension; Z60.2 Problems related to living alone; X78.1XXA Intentional self-harm by knife, initial encounter; Y93.89 Activity, other specified; Y92.098 Other place in other non-institutional residence as the place of occurrence of the external cause; Y99.8 Other external cause status; Z59.0 Homelessness; Z82.49 Family history of ischemic heart disease and other diseases of the circulatory system; Z79.899 Other long term (current) drug therapy
CPT/HCPCS: 36415; 80061; 82962; 83036; G0378

== ENCOUNTER 2018-10-19 01:21 | Inpatient (IN) | payer MEDICARE ==
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
[2018-10-19 02:29] LABS: Basophils # (Auto) 0.1 K/mm3 (0.0-0.1); Basophils % (Auto) 0.6 % (0.0-1.8); Eosinophils % (Auto) 0.2 % (0.0-4.3); Hematocrit 45.3 % (35.5-45.6); Hemoglobin 15.4 gm/dl (11.8-15.2); Lymphocytes # (Auto) 1.4 K/mm3 (1.2-5.4); Lymphocytes % (Auto) 8.8 % (13.4-35.0); Mean Corpuscular HGB Conc 34 % (32-34); Mean Corpuscular Volume 93 fl (84-94); Monocytes # (Auto) 1.2 K/mm3 (0.0-0.8); Monocytes % (Auto) 7.6 % (0.0-7.3); Platelet Count 249 K/mm3 (140-440); Red Blood Count 4.89 M/mm3 (3.65-5.03); Red Cell Distribution Width 13.8 % (13.2-15.2)
--- NOTE | 2018-10-19 02:44 | Cat Scan Report ---
CT HEAD WITHOUT CONTRAST INDICATION : Altered mental status. Possible head injury after fall. TECHNIQUE: Axial, coronal and sagittal CT imaging was performed from the skull apex through the skul l base without contrast. All CT scans at this location are performed using CT dose reduction for ALA RA by means of automated exposure control. COMPARISON: CT of the head without contrast from 07/23/2018. FINDINGS: PARENCHYMA: No mass, midline shift, hemorrhage, extraaxial collection or acute territorial infarctio n. Generalized atrophy is stable. VENTRICLES: Prominent secondary to atrophy without an acute abnormality. SOFT TISSUES: Soft tissues including the orbits appear normal. BONES: No acute osseous abnormality. SINUSES: No significant abnormality. ADDITIONAL FINDINGS: The distal internal carotid arteries are moderately calcified. IMPRESSION: 1. No acute abnormality. If there is continued clinical concern for an acute stroke, an MRI of the b rain without contrast is suggested for further evaluation. 2. Stable atrophy. Signer Name: Alli Cano MD Signed: 10/19/2018 2:39 AM Workstation Name: [id number]
[2018-10-19 02:47] LABS: Calcium 9.5 mg/dL (8.4-10.2)
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
[2018-10-19 02:51] LABS: Alanine Aminotransferase 8 units/L (7-56); Albumin 4.1 g/dL (3.9-5)
[2018-10-19 02:53] LABS: Bilirubin,Direct < 0.2 mg/dL (0-0.2)
[2018-10-19] MEDS ORDERED: ATIVAN IV ONE (03:35)
--- NOTE | 2018-10-19 04:58 | History and Physical Report ---
History of Present Illness History of present illness: 73-year-old woman with a history of hypertension, depression, migraine was brought to the emergency room because his found him confused and had slurred speech. s/p ativan in the ER, ROS difficult to obtain PAST MEDICAL HISTORY: hypertension, migraine, depression PAST SURGICAL HISTORY: Abdominal, tonsillectomy, rotator cuff, deviated septum, knee SOCIAL HISTORY: quit alcohol, + tobacco, no drugs FAMILY HISTORY: Hypertension Medications and Allergies Allergies Allergy/AdvReac Type Severity Reaction Status Date / Time No Known Allergies Allergy Verified 03/03/18 03:08 Home Medications Medication Instructions Recorded Confirmed Last Taken Type Carvedilol [Coreg] 25 mg PO BID #60 tablet 07/27/18 08/23/18 Unknown Rx Multivitamin [Multiple Vitamins] 1 each PO DAILY #30 tablet 07/27/18 08/23/18 Unknown Rx amLODIPine [Norvasc] 5 mg PO DAILY #30 tablet 07/27/18 08/23/18 Unknown Rx oxyCODONE /ACETAMINOPHEN [Percocet 1 tab PO Q6HR PRN #10 tablet 07/27/18 08/23/18 Unknown Rx 5/325 mg] Citalopram Hydrobromide [celeXA] 20 mg PO DAILY #30 tablet 08/30/18 Unknown Rx Folic Acid [Folvite] 1 mg PO QDAY #30 tablet 08/30/18 Unknown Rx Melatonin [Melatonin 5MG TAB] 10 mg PO QHS #60 tablet 08/30/18 Unknown Rx Mirtazapine [Remeron 15mg TAB] 15 mg PO QHS #30 tablet 08/30/18 Unknown Rx Nicotine [Habitrol] 14 mg TD QDAY #30 patch 08/30/18 Unknown Rx Pregabalin [Lyrica] 50 mg PO TID #90 capsule 08/30/18 Unknown Rx Thiamine [Vitamin B-1] 100 mg PO QDAY #30 tablet 08/30/18 Unknown Rx hydrOXYzine PAMOATE [Vistaril] 50 mg PO Q6H PRN #30 capsule 08/30/18 Unknown Rx Active Meds: Active Medications Enoxaparin Sodium (Lovenox) 30 mg SUB-Q QDAY LEELA Exam - Physical Exam Narrative exam: Gen. appearance: Patient lying in bed, no apparent distress HEENT: Normocephalic, atraumatic, pupils equally round and reactive to light, extraocular movement intact, and no sclericterus,. No JVD or thyromegaly or nodule,neck supple, no carotid bruit ,mucous membranes moist, no exudate or erythema Heart: S1, S2, regular rate and rhythm Lungs: Clear bilaterally, breathing comfortable Abdomen: Positive bowel sounds, non-tender, nondistended, no organomegaly Extremity:no edema cyanosis, clubbing Skin: no rash, dry, warm Neuro: difficult to assess - Constitutional Vitals: Temp Pulse Resp BP Pulse Ox 98.7 F 84 17 121/70 96 10/19/18 01:46 10/19/18 03:46 10/19/18 03:46 10/19/18 03:46 10/19/18 02:38 Results - Labs CBC & Chem 7: 10/19/18 02:04 10/19/18 02:14 Labs: Abnormal lab results 10/19/18 10/19/18 10/19/18 Range/Units 02:04 02:14 02:14 WBC 16.0 H (4.5-11.0) K/mm3 Hgb 15.4 H (11.8-15.2) gm/dl Lymph % (Auto) 8.8 L (13.4-35.0) % [place] % (Auto) 7.6 H (0.0-7.3) % [place] # 1.2 H (0.0-0.8) K/mm3 Seg Neutrophils % 82.8 H (40.0-70.0) % Seg Neutrophils # 13.2 H (1.8-7.7) K/mm3 Potassium 3.2 L (3.6-5.0) mmol/L Chloride 89.7 L (98-107) mmol/L Glucose 134 H (75-100) mg/dL POC Glucose (70-105) Alkaline Phosphatase 158 H (35-129) units/L 10/19/18 Range/Units 02:21 WBC (4.5-11.0) K/mm3 Hgb (11.8-15.2) gm/dl Lymph % (Auto) (13.4-35.0) % [place] % (Auto) (0.0-7.3) % [place] # (0.0-0.8) K/mm3 Seg Neutrophils % (40.0-70.0) % Seg Neutrophils # (1.8-7.7) K/mm3 Potassium (3.6-5.0) mmol/L Chloride (98-107) mmol/L Glucose (75-100) mg/dL POC Glucose 135 H (70-105) Alkaline Phosphatase (35-129) units/L - Imaging and Cardiology EKG: image reviewed CT Scan - head: report reviewed Assessment and Plan Assessment Acute CVA SIRS hypertension Depression Migraine Plan Start stroke protocol Obtain MRI head, neck, echo Do neuro checks, swallow screen Start aspirin, statin, IV hydralazine for blood pressure control No s/s of infection, hold antibiotic, panculture DVT prophylaxis
[2018-10-19] MEDS ORDERED: ZOFRAN IV PRN (05:06)
[2018-10-19] MEDS ORDERED: SODIUM CHLORIDE FLUSH SYRINGE 10 ML IV PRN (05:06)
[2018-10-19] MEDS ORDERED: DULCOLAX PR PRN (05:06)
[2018-10-19] MEDS ORDERED: MILK OF MAGNESIA PO PRN (05:06)
[2018-10-19] MEDS ORDERED: TYLENOL PO PRN (05:06)
[2018-10-19] MEDS ORDERED: APRESOLINE IV PRN (05:09)
[2018-10-19] MEDS ORDERED: K-DUR PO ONE ×2 (05:33→06:14)
[2018-10-19] MEDS ORDERED: LOVENOX SUB-Q SCH (10:00)
[2018-10-19] MEDS: ASPIRIN PO SCH (10:25)
[2018-10-19] MEDS: LOVENOX SUB-Q SCH (10:25)
--- NOTE | 2018-10-19 10:40 | Consultation ---
History of Present Illness Consult date: 10/19/18 Reason for Consult: confusion Chief complaint: Patient complains of migraine History of present illness: Patient arrives with migraine-like headache however was found confused by no family members in the room now unable to establish patient's baseline nevertheless one I walked into the room patient was hallucinating and reaching for things in front of him I asked him if your hallucinating he said yes I asked patient if your hearing voices he says no A quick physical survey shows patient is moving all extremities well face is symmetrical no extra movements there may be some left-sided numbness to the lower extremities otherwise no signs of large stroke or meningitis Medications reviewed there are no offending medications from home that would cause hallucinations he does not have a history of Parkinson's disease and is not on dopamine CT head no acute intracranial process EKG shows prolonged [place] interval with sinus rhythm afebrile no Seizures or loss of consciousness since admission Patient admits to nausea vomiting for the past 2 days Denies any changes of speech vision gait balance and denies any new focal brain deficits Patient is confused and his history although was able to be obtained is not 100% reliable Patient's past medical history significant for migraines depression Social history former drinker positive smoking no drugs Family history negative for neurologic disease Allergies NKDA Chart review History of chronic left lower extremity weakness patient arrived with blood pressures of 165 systolic and 135 blood sugars white count 16 No tPA or LVO w/u Last time known well was last night around 9 to 10:00 pm patient was found around 1 to 2:00 in the morning wandering around Medications and Allergies Allergies Allergy/AdvReac Type Severity Reaction Status Date / Time No Known Allergies Allergy Verified 03/03/18 03:08 Home Medications Medication Instructions Recorded Confirmed Last Taken Type Carvedilol [Coreg] 25 mg PO BID #60 tablet 07/27/18 08/23/18 Unknown Rx Multivitamin [Multiple Vitamins] 1 each PO DAILY #30 tablet 07/27/18 08/23/18 Unknown Rx amLODIPine [Norvasc] 5 mg PO DAILY #30 tablet 07/27/18 08/23/18 Unknown Rx oxyCODONE /ACETAMINOPHEN [Percocet 1 tab PO Q6HR PRN #10 tablet 07/27/18 08/23/18 Unknown Rx 5/325 mg] Citalopram Hydrobromide [celeXA] 20 mg PO DAILY #30 tablet 08/30/18 Unknown Rx Folic Acid [Folvite] 1 mg PO QDAY #30 tablet 08/30/18 Unknown Rx Melatonin [Melatonin 5MG TAB] 10 mg PO QHS #60 tablet 08/30/18 Unknown Rx Mirtazapine [Remeron 15mg TAB] 15 mg PO QHS #30 tablet 08/30/18 Unknown Rx Nicotine [Habitrol] 14 mg TD QDAY #30 patch 08/30/18 Unknown Rx Pregabalin [Lyrica] 50 mg PO TID #90 capsule 08/30/18 Unknown Rx Thiamine [Vitamin B-1] 100 mg PO QDAY #30 tablet 08/30/18 Unknown Rx hydrOXYzine PAMOATE [Vistaril] 50 mg PO Q6H PRN #30 capsule 08/30/18 Unknown Rx Active Meds: Active Medications Acetaminophen (Tylenol) 650 mg PO Q4H PRN PRN Reason: Pain, Mild (1-3) Aspirin (Aspirin) 325 mg PO QDAY [facility] Last Admin: 10/19/18 10:25 Dose: 325 mg Documented by: Atorvastatin Calcium (Lipitor) 40 mg PO QHS LEELA Bisacodyl (Dulcolax) 10 mg [place] QDAY PRN PRN Reason: Constipation Enoxaparin Sodium (Lovenox) 40 mg SUB-Q QDAY@1000 LEELA Last Admin: 10/19/18 10:25 Dose: 40 mg Documented by: Hydralazine HCl (Apresoline) 5 mg IV Q6H PRN PRN Reason: Hypertension Magnesium Hydroxide (Milk Of Magnesia) 30 ml PO Q4H PRN PRN Reason: Constipation Ondansetron HCl (Zofran) 4 mg IV Q8H PRN PRN Reason: Nausea And Vomiting Pneumococcal Polyvalent Vaccine (Pneumovax 23) 0.5 ml IM .ONCE ONE Stop: 10/20/18 12:01 Sodium Chloride (Sodium Chloride Flush Syringe 10 Ml) 10 ml IV PRN PRN PRN Reason: LINE FLUSH Physical Examination - Vital Signs Vital Signs: Vital Signs Pulse Resp Pulse Ox 96 H 11 L 93 10/19/18 01:29 10/19/18 01:29 10/19/18 01:29 - Physical Exam Narrative exam: Pleasantly confused and visual hallucinating no hearing voices Alert aware Oriented self and situation place time Patient seems to have truncal ataxia , cant sit up w/o leaning back he does FSC able to do three step commands moves all ext 5/5 power sensory decreased L LE only , cerebellar signs are + CN are intact verbal gait ataxic some nonsensical speech Abdomen soft no respiratory distress skin intact pulses good 4 Neck is supple no signs of rash no photophobia EOMI PERRL Cranial nerves seem intact tongue midline no signs of aphasia or agnosia restless denies SI/ HI Results - Laboratory Findings CBC and BMP: 10/19/18 02:04 10/19/18 02:14 Abnormal Lab Findings: Abnormal Labs 10/19/18 10/19/18 10/19/18 02:04 02:14 02:14 WBC 16.0 H Hgb 15.4 H Lymph % (Auto) 8.8 L [place] % (Auto) 7.6 H [place] # 1.2 H Seg Neutrophils % 82.8 H Seg Neutrophils # 13.2 H Potassium 3.2 L Chloride 89.7 L Glucose 134 H POC Glucose Alkaline Phosphatase 158 H 10/19/18 02:21 WBC Hgb Lymph % (Auto) [place] % (Auto) [place] # Seg Neutrophils % Seg Neutrophils # Potassium Chloride Glucose POC Glucose 135 H Alkaline Phosphatase Assessment and Plan AMS: poss d/t stroke(s), localizing to cerebellum and parietal lobe on the R, poss embolic to R MCA and basilar vasc beds, isch acute, stable ? infectious etiology cannot be r/o this early, 16 WBC count w/o signs of meningitis no startle myoclonus no recent seizures meds reviewed no fever MRI B PENDING asa thiamine tele check CXR , u/A, thyroid studies, amm., lactic acid, b12 hold LP for now, also hold EEG for now w/u leukocytosis w/u prolonged [place] interval there are case reports of Remeron and hallucinations rehab services get more info from family
--- NOTE | 2018-10-19 11:58 | Event Note ---
Date: 10/19/18 Patient was admitted this morning with AMS/Metabolic encephalopathy and with neuro symptoms. Neuro evaluated ,w/u in progress Patient is hallucinating,psychotic and agitated, restrained for safety Vital signs reviewed Assessment: --Metabolic encephalopathy --Acute psychosis/Bipolar disorder: --Chronic alcohol use: [facility] protocol --Neuro symptoms/r/o CVA --HTN : --h/o Depression --H/o migrain head ache --DVT : prophylaxis Plan; Follow neuro evaln and recommendations Follow neuro workup Psych evaluation [facility] protocol Continue rest of the management Disposition; follow clinically Discharge in medically stable
[2018-10-19] MEDS: ATIVAN IV PRN ×2 (12:27→21:52)
[2018-10-20 06:10] LABS: Hematocrit 44.2 % (35.5-45.6); Mean Corpuscular HGB Conc 34 % (32-34); Mean Corpuscular Volume 95 fl (84-94); Red Blood Count 4.65 M/mm3 (3.65-5.03); Red Cell Distribution Width 14.1 % (13.2-15.2)
[2018-10-20 06:54] LABS: Basophils % (Auto) 0.6 % (0.0-1.8); Eosinophils # (Auto) 0.4 K/mm3 (0.0-0.4); Eosinophils % (Auto) 5.9 % (0.0-4.3); Lymphocytes % (Auto) 31.1 % (13.4-35.0); Monocytes # (Auto) 0.4 K/mm3 (0.0-0.8); Monocytes % (Auto) 6.7 % (0.0-7.3)
[2018-10-20 06:57] LABS: Platelet Count 190 K/mm3 (140-440)
[2018-10-20 07:36] LABS: Alanine Aminotransferase 8 units/L (7-56); Albumin 3.4 g/dL (3.9-5); BUN/Creatinine Ratio 13; Blood Urea Nitrogen 9 mg/dL (9-20); Calcium 8.4 mg/dL (8.4-10.2); Chol/HDL Ratio 2.07 %; HDL Cholesterol 77 mg/dL (40-59); Hemolysis Index 36; LDL Cholesterol,Direct 81 mg/dL (50-130)
[2018-10-20] MEDS ORDERED: PNEUMOVAX 23 IM ONE (12:00)
--- NOTE | 2018-10-20 12:06 | Magnetic Resonance Report ---
MRA HEAD 10/20/2018 INDICATION / CLINICAL INFORMATION: stroke. Headaches. Speech disturbance. TECHNIQUE: Routine MRA of the head is performed. 3-D/MIP reformats postprocessed. Some patient motion artifact i s present. COMPARISON: None available. FINDINGS: MRA HEAD: Intracranial internal carotid arteries: No significant abnormality. Anterior cerebral arteries: No significant abnormality. Middle cerebral arteries: No significant abnormality. Intracranial vertebral arteries: No significant abnormality. Basilar artery: No significant abnormality. Posterior cerebral arteries: No significant abnormality. IMPRESSION: No significant abnormality. Signer Name: Bonifacio Xiong MD Signed: 10/20/2018 12:02 PM Workstation Name: [id number]
[2018-10-20] MEDS: ASPIRIN PO SCH (12:53)
[2018-10-20] MEDS: LOVENOX SUB-Q SCH (12:53)
--- NOTE | 2018-10-20 12:55 | Magnetic Resonance Report ---
MRI BRAIN WITHOUT CONTRAST INDICATION / CLINICAL INFORMATION: stroke. Weakness and slurred speech. TECHNIQUE: Multiplanar, multisequence MR images of the brain were obtained. COMPARISON: Head CT 10/19/2018 and 07/23/2018 FINDINGS: BRAIN / INTRACRANIAL CONTENTS: Age-related parenchymal volume loss is demonstrated. Dilatation of the cortical sulci and ventricular system is noted in keeping with the patient's stated age of 73. Minim al periventricular white matter hyperintensity is noted consistent with mild microvascular ischemic c hanges. There is no mass effect. No evidence of intracranial hemorrhage or extra-axial fluid collecti on is seen. There is no indication of remote cortical infarction. Diffusion weighted scans are negati ve. There is no indication of acute ischemic injury. The brainstem and cerebellum have an unremarkable appearance. CRANIOCERVICAL JUNCTION: No abnormalities are identified at the craniocervical junction. VASCULAR FLOW-VOIDS: Normal flow-voids are present within the major intracranial vessels. ORBITS: The orbits have an unremarkable appearance. SINUSES / MASTOIDS: There is no indication of inflammatory disease in the paranasal sinuses or mastoi d air cells. IMPRESSION: 1. Parenchymal volume loss in keeping with the patient's age of 73 years. 2. No acute intracranial abnormality. No evidence of recent or remote infarction. Signer Name: Morgan Campbell MD Signed: 10/20/2018 12:51 PM Workstation Name: [id number]
--- NOTE | 2018-10-20 13:14 | Progress Note ---
Assessment and Plan Assessment and plan: Acute encephalopathy. Etiology unknown. Neurology following and reports no distinct CVA deficits appreciated. CT head no acute intracranial process. ? Toxic metabolic etiology. Check urinalysis leukocytosis improved. Psychiatry following. History of EtOH abuse. Continue CIWA protocol. Hypertension. Continue antihypertensive medications. History of depression. Migraine headaches. Pain control. History Interval history: Patient denies any complaints. Patient appears to be calm and cooperative. Hospitalist Physical - Constitutional Vitals: Temp Pulse Resp BP Pulse Ox 98.2 F 60 20 112/71 92 10/20/18 04:03 10/20/18 04:00 10/20/18 04:03 10/20/18 04:03 10/20/18 04:00 General appearance: Present: no acute distress, well-nourished - EENT Eyes: Present: PERRL, EOM intact ENT: hearing intact, clear oral mucosa, dentition normal - Neck Neck: Present: supple, normal ROM - Respiratory Respiratory effort: normal Respiratory: bilateral: CTA - Cardiovascular Rhythm: regular Heart Sounds: Present: S1 & S2. Absent: gallop, rub - Extremities Extremities: no ischemia, No edema, Full ROM - Abdominal General gastrointestinal: soft, non-tender, non-distended, normal bowel sounds - Integumentary Integumentary: Present: clear, warm, dry - Neurologic Neurologic: CNII-XII intact, moves all extremities Results - Labs CBC & Chem 7: 10/20/18 05:22 10/20/18 05:22 Labs: Laboratory Last Values WBC 6.4 K/mm3 (4.5-11.0) 10/20/18 05:22 RBC 4.65 M/mm3 (3.65-5.03) 10/20/18 05:22 Hgb 15.0 gm/dl (11.8-15.2) 10/20/18 05:22 Hct 44.2 % (35.5-45.6) 10/20/18 05:22 MCV 95 fl (84-94) H 10/20/18 05:22 MCH 32 pg (28-32) 10/20/18 05:22 MCHC 34 % (32-34) 10/20/18 05:22 RDW 14.1 % (13.2-15.2) 10/20/18 05:22 Plt Count 190 K/mm3 (140-440) 10/20/18 05:22 Lymph % (Auto) 31.1 % (13.4-35.0) 10/20/18 05:22 [place] % (Auto) 6.7 % (0.0-7.3) 10/20/18 05:22 Eos % (Auto) 5.9 % (0.0-4.3) H 10/20/18 05:22 Baso % (Auto) 0.6 % (0.0-1.8) 10/20/18 05:22 Lymph # 2.0 K/mm3 (1.2-5.4) 10/20/18 05:22 [place] # 0.4 K/mm3 (0.0-0.8) 10/20/18 05:22 Eos # 0.4 K/mm3 (0.0-0.4) 10/20/18 05:22 Baso # 0.0 K/mm3 (0.0-0.1) 10/20/18 05:22 Seg Neutrophils % 55.7 % (40.0-70.0) 10/20/18 05:22 Seg Neutrophils # 3.6 K/mm3 (1.8-7.7) 10/20/18 05:22 Sodium 136 mmol/L (137-145) L 10/20/18 05:22 Potassium 3.5 mmol/L (3.6-5.0) L 10/20/18 05:22 Chloride 96.3 mmol/L (98-107) L 10/20/18 05:22 Carbon Dioxide 28 mmol/L (22-30) 10/20/18 05:22 15 mmol/L 10/20/18 05:22 BUN 9 mg/dL (9-20) 10/20/18 05:22 0.7 mg/dL (0.8-1.5) L 10/20/18 05:22 Estimated GFR > 60 ml/min 10/20/18 05:22 13 % 10/20/18 05:22 Glucose 97 mg/dL (75-100) 10/20/18 05:22 POC Glucose 135 (70-105) H 10/19/18 02:21 Calcium 8.4 mg/dL (8.4-10.2) 10/20/18 05:22 Magnesium 2.50 mg/dL (1.7-2.3) H 10/20/18 05:22 0.60 mg/dL (0.1-1.2) 10/20/18 05:22 < 0.2 mg/dL (0-0.2) 10/19/18 02:14 0.5 mg/dL 10/19/18 02:14 AST 38 units/L (5-40) 10/20/18 05:22 ALT 8 units/L (7-56) 10/20/18 05:22 133 units/L (35-129) H 10/20/18 05:22 < 0.010 ng/mL (0.00-0.029) 10/19/18 02:14 5.8 g/dL (6.3-8.2) L 10/20/18 05:22 3.4 g/dL (3.9-5) L 10/20/18 05:22 1.4 % 10/20/18 05:22 Triglycerides 85 mg/dL (2-149) 10/20/18 05:22 Cholesterol 160 mg/dL (50-199) 10/20/18 05:22 81 mg/dL (50-130) 10/20/18 05:22 77 mg/dL (40-59) H 10/20/18 05:22 2.07 % 10/20/18 05:22 Active Medications - Current Medications Current Medications: Generic Name Dose Route Start Last Admin Trade Name Freq PRN Reason Stop Dose Admin Acetaminophen 650 mg 10/19/18 05:06 Tylenol PO Q4H PRN Pain, Mild (1-3) Aspirin 325 mg 10/19/18 10:00 10/20/18 12:53 Aspirin PO 325 mg QDAY LEELA Administration Atorvastatin Calcium 40 mg 10/19/18 22:00 10/19/18 21:52 Lipitor PO 40 mg QHS LEELA Administration Bisacodyl 10 mg 10/19/18 05:06 Dulcolax HI QDAY PRN Constipation Enoxaparin Sodium 40 mg 10/19/18 10:00 10/20/18 12:53 Lovenox SUB-Q 40 mg QDAY@1000 LEELA Administration Hydralazine HCl 5 mg 10/19/18 05:09 Apresoline IV Q6H PRN Hypertension Lorazepam 2 mg 10/19/18 12:00 10/19/18 21:52 Ativan IV 2 mg Q1H PRN Administration Agitation Magnesium Hydroxide 30 ml 10/19/18 05:06 Milk Of Magnesia PO Q4H PRN Constipation Ondansetron HCl 4 mg 10/19/18 05:06 Zofran IV Q8H PRN Nausea And Vomiting Sodium Chloride 10 ml 10/19/18 05:06 Sodium Chloride Flush Syringe 10 Ml IV PRN PRN LINE FLUSH
--- NOTE | 2018-10-20 14:07 | Progress Note ---
Assessment and Plan AMS ; resolving , w/o relapse, likely d/t medication SE hallucinations resolving, may have been d/t remeron vs suboxone leukocytosis, : resolved MRI b normal exam intact no fever cont. current management thiamine folate b12 vit d Subjective Date of service: 10/20/18 Principal diagnosis: AMS Interval history: mental status has improved no LOC or sz no SAHU or n/v.v no new focal brain complaints no fever or neck stiffness no myoclonus activity per who told nursing, pt was on suboxone remeron stopped no gross hallucinations today AMS has improved MRI b neg for acute process MRA h neg. wbc normal today no events overnight, sitter is still in room Objective - Exam Narrative Exam: awake alert comfortable, oriented x 4 pt doenst seem altered , but pressured and poor memory of recent history no active hallucinations EOMI PERRL CN intact 5/5 to all limbs no extra movements tone normal to all limbs no neck stiffness tongue mid line VFF - Vital Sign Vital Signs - 12hr 10/20/18 10/20/18 04:00 04:03 Temperature 98.2 F Pulse Rate 60 Respiratory 20 Rate Blood Pressure 112/71 O2 Sat by Pulse 92 Oximetry - General Apperance Constitutional: comfortable - Respiratory Respiratory: no respiratory distress - Laboratory Findings CBC and BMP: 10/20/18 05:22 10/20/18 05:22 Abnormal Lab Findings: Abnormal Labs 10/19/18 10/19/18 10/19/18 02:04 02:14 02:14 WBC 16.0 H Hgb 15.4 H MCV Lymph % (Auto) 8.8 L [place] % (Auto) 7.6 H Eos % (Auto) [place] # 1.2 H Seg Neutrophils % 82.8 H Seg Neutrophils # 13.2 H Sodium Potassium 3.2 L Chloride 89.7 L Creatinine Glucose 134 H POC Glucose Magnesium Alkaline Phosphatase 158 H Total Protein Albumin HDL Cholesterol 10/19/18 10/20/18 10/20/18 02:21 05:22 05:22 WBC Hgb MCV 95 H Lymph % (Auto) [place] % (Auto) Eos % (Auto) 5.9 H [place] # Seg Neutrophils % Seg Neutrophils # Sodium 136 L Potassium 3.5 L Chloride 96.3 L Creatinine 0.7 L Glucose POC Glucose 135 H Magnesium 2.50 H Alkaline Phosphatase 133 H Total Protein 5.8 L Albumin 3.4 L HDL Cholesterol 77 H
[2018-10-20] MEDS: ATIVAN IV PRN ×2 (16:53→21:39)
--- NOTE | 2018-10-21 08:11 | Discharge Summary ---
Providers - Providers Date of Admission: 10/19/18 04:12 Date of discharge: 10/21/18 Attending physician: ABBI COSTA 10/19/18 Consult to Physician [CONS] Routine Comment: Consulting Provider: MILTON MENDEZ Physician Instructions: Reason For Exam: cva 10/19/18 05:06 Occupational Therapy Evaluate and Treat [CONS] Routine Comment: Reason For Exam: Neuro deficits Physical Therapy Evaluation and Treat [CONS] Routine Comment: Reason For Exam: Neuro deficits 10/19/18 12:02 Consult to Physician [CONS] Routine Comment: Consulting Provider: YONNY MAYER Physician Instructions: Reason For Exam: h/o bipolar/hallucinations/agitation Primary care physician: DIRECTOR OF SCIENCE Hospitalization Reason for admission: encephalopathy Condition: Stable Hospital course: 73-year-old woman with a history of hypertension, depression, migraine was brought to the emergency room because his found him confused and had slurred speech. Patient was initially admitted with possible CVA. However, neurology evaluated the patient and reported no distinct CVA deficits appreciated. Patient was noted to have some hallucinations. CT head no acute intracranial process. Toxic metabolic causes were also explored. Patient was noted to have leukocytosis that quickly resolved after admission. Neurology concluded that etiology of encephalopathy/hallucinations was likely related to medication, potentially Remeron versus Suboxone. The altered mentation resolved. MRI was noted to be normal. No evidence of sepsis/toxic etiology. Patient returned back to baseline and is felt to have received maximum hospital benefit for discharge. Dedicated discharge time 35 minutes. Disposition: -01 TO HOME OR SELFCARE Time spent for discharge: 35 - Discharge Diagnoses (1) Medication adverse effect Status: Acute (2) Altered mental status, unspecified Status: Acute Qualifiers: Altered mental status type: unspecified Qualified Code(s): R41.82 - Altered mental status, unspecified (3) Alcohol use disorder, severe, dependence Status: Acute Core Measure Documentation - Palliative Care Palliative Care/ Comfort Measures: Not Applicable - Core Measures Any of the following diagnoses?: none Exam - Constitutional Vitals: Temp Pulse Resp BP Pulse Ox 98.0 F 65 16 145/80 94 10/21/18 04:29 10/21/18 04:29 10/21/18 04:29 10/21/18 04:29 10/21/18 04:29 General appearance: Present: no acute distress, well-nourished - EENT Eyes: Present: PERRL ENT: hearing intact, clear oral mucosa - Neck Neck: Present: supple, normal ROM - Respiratory Respiratory effort: normal Respiratory: bilateral: CTA - Cardiovascular Heart Sounds: Present: S1 & S2. Absent: rub, click - Extremities Extremities: pulses symmetrical, No edema Peripheral Pulses: within normal limits - Abdominal General gastrointestinal: Present: soft, non-tender, non-distended, normal bowel sounds Male genitourinary: Present: normal - Integumentary Integumentary: Present: clear, warm, dry - Musculoskeletal Musculoskeletal: gait normal, strength equal bilaterally - Psychiatric Psychiatric: appropriate mood/affect, intact judgment & insight - Neurologic Neurologic: CNII-XII intact, moves all extremities Plan Activity: advance as tolerated Weight Bearing Status: Weight Bear as Tolerated Diet: regular Follow up with: PRIMARY CARE,MD [Primary Care Provider] - 3-5 Days Prescriptions: Citalopram Hydrobromide [celeXA] 20 mg PO DAILY #30 tablet Carvedilol [Coreg] 25 mg PO BID #60 tablet Folic Acid [Folvite] 1 mg PO QDAY #30 tablet Nicotine [Habitrol] 14 mg TD QDAY #30 patch Pregabalin [Lyrica] 50 mg PO TID #90 capsule Melatonin [Melatonin 5MG TAB] 10 mg PO QHS #60 tablet Multivitamin [Multiple Vitamins] 1 each PO DAILY #30 tablet amLODIPine [Norvasc] 5 mg PO DAILY #30 tablet Mirtazapine [Remeron 15mg TAB] 15 mg PO QHS #30 tablet Thiamine [Vitamin B-1] 100 mg PO QDAY #30 tablet
[2018-10-21 08:23] VITALS: BP 130/71
[2018-10-21] MEDS: ASPIRIN PO SCH (09:18)
[2018-10-21] MEDS: LOVENOX SUB-Q SCH (09:18)
== END 2018-10-21 16:15 | disposition home or self-care (01) | DRG 71 ==
LOC: ED 01:21 → 4A 04:12
PROVIDERS: ADMIT Internal Medicine; ATTEND Hospitalist
PROC: 3E0234Z Introduction of Serum, Toxoid and Vaccine into Muscle, Percutaneous Approach (ICD-10-PCS; principal; 2018-10-20)
DX: G93.41 Metabolic encephalopathy (principal); R65.10 Systemic inflammatory response syndrome (SIRS) of non-infectious origin without acute organ dysfunction; F23 Brief psychotic disorder; G43.909 Migraine, unspecified, not intractable, without status migrainosus; F32.9 Major depressive disorder, single episode, unspecified; D72.829 Elevated white blood cell count, unspecified; T43.025A Adverse effect of tetracyclic antidepressants, initial encounter; T50.7X5A Adverse effect of analeptics and opioid receptor antagonists, initial encounter; F10.20 Alcohol dependence, uncomplicated; I12.9 Hypertensive chronic kidney disease with stage 1 through stage 4 chronic kidney disease, or unspecified chronic kidney disease; N18.9 Chronic kidney disease, unspecified; Z23 Encounter for immunization; Y92.89 Other specified places as the place of occurrence of the external cause; Z79.899 Other long term (current) drug therapy; Z82.49 Family history of ischemic heart disease and other diseases of the circulatory system
CPT/HCPCS: 36415; 70450; 70544; 70551; 80048; 80053; 80061; 80076; 82962; 83735; 84484; 85025; 87040; 90732; 93005; 93010; 93306; G0378; A9270-GY; J1650; J2060